=== PATIENT | female | born 1935 | race Caucasian/White ===

== ENCOUNTER 2018-02-11 16:45 | Inpatient (IN) | payer MEDICARE, OTHER ==
[~2018-02-11] VITALS: Ht 152.4 cm; Wt 58.6 kg
--- OUTSIDE RECORDS SUMMARY | ~2018-02-11 | XMS | Clinical Summary ---
Demographics + + + | Address | [address] | | | [place] [address] | + + + | Home Phone | | + + + | Preferred Language | Unknown | + + + | Marital Status | | + + + | Restorationist Affiliation | Unknown | + + + | Race | Unknown | + + + | Ethnic Group | Unknown | + + + Author + + + | Author | [facility] | + + + | Organization | [facility] | + + + | Address | Unknown | + + + | Phone | Unavailable | + + + Support + + + + + | Name | Relationship | Address | Phone | + + + + + | Farnaz Valdez | ECON | Unknown | | + + + + + | Obdulio Aviles | ECON | [address] | | | | | [place] | | | | | [address] | | + + + + + | Tristen Aviles | ECON | Unknown | | + + + + + Care Team Providers + +------+ + | Care Director Of Pediatric Rehabilitation Name | Role | Phone | + +------+ + | Kev Rodriguez MD | PP | | + +------+ + Allergies + + + + + + | Active Allergy | Reactions | Severity | Noted | Comments | | | | | Date | | + + + + + + | Penicillins | Rash | Medium | 12/23/19 | | | | | | 14 | | + + + + + + Current Medications + + + +---------+------+------+-------+ | Prescription | Sig. | Disp. | Refills | Star | End | Statu | | | | | | t | Date | s | | | | | | Date | | | + + + +---------+------+------+-------+ | Cholecalciferol | Take 1 tablet by | | | | | Activ | | (VITAMIN D PO) | mouth nightly. | | | | | e | + + + +---------+------+------+-------+ | FIBER PO | Take by mouth. | | | | | Activ | | | | | | | | e | + + + +---------+------+------+-------+ | fexofenadine | Take 180 mg by mouth | | | | | Activ | | (AMY) 180 MG | daily as needed. | | | | | e | | tablet | | | | | | | + + + +---------+------+------+-------+ | Calcium-Phosphorus | Take 1 tablet by | | | | | Activ | | (POSTURE) 600-280 | mouth daily with | | | | | e | | MG TABS | breakfast. | | | | | | + + + +---------+------+------+-------+ | acetaminophen | Take 650 mg by mouth | | | | | Activ | | (TYLENOL) 325 MG | every 6 (six) hours | | | | | e | | tablet | as needed. | | | | | | + + + +---------+------+------+-------+ | docusate sodium | Take 100 mg by mouth | | | | | Activ | | (COLACE) 100 MG | daily. | | | | | e | | capsule | | | | | | | + + + +---------+------+------+-------+ | | Take 3 mLs by | 360 mL | 0 | 08/2 | | Activ | | ipratropium-albutero | nebulization every 6 | | | 8/20 | | e | | l (DUO-NEB) 0.5-2.5 | (six) hours as | | | 14 | | | | mg/3mL | needed (shortness of | | | | | | | | breath and | | | | | | | | wheezing). | | | | | | + + + +---------+------+------+-------+ | oxybutynin | Take 5 mg by mouth 2 | | | | | Activ | | (DITROPAN) 5 MG | (two) times daily. | | | | | e | | tablet | | | | | | | + + + +---------+------+------+-------+ | cephALEXin | | | | 03/2 | | Activ | | (KEFLEX) 250 MG | | | | 5/20 | | e | | capsule | | | | 15 | | | + + + +---------+------+------+-------+ Active Problems + + + | Problem | Noted Date | + + + | Leukocytosis, unspecified | 02/28/2014 | + + + | Hyposmolality and/or hyponatremia | 02/28/2014 | + + + | Infection of TEAM MEMBER (ventriculoperitoneal) shunt | 02/27/2014 | + + + | Pneumonia | 02/26/2014 | + + + | Pleural effusion | 02/26/2014 | + + + | Normal pressure hydrocephalus | 02/25/2014 | + + + | Delayed wound healing | 02/21/2014 | + + + | NPH (normal pressure hydrocephalus) | 08/10/2012 | + + + Family History + + +------+ + | Medical History | Relation | Name | Comments | + + +------+ + | Stroke | | | | + + +------+ + + +------+--------+ + | Relation | Name | Status | Comments | + +------+--------+ + Social History + +-------+ +--------+------+ | Tobacco Use | Types | Packs/Day | Years | Date | | | | | Used | | + +-------+ +--------+------+ | Never Smoker | | | | | + +-------+ +--------+------+ + +---+---+---+ | Smokeless Tobacco: | | | | | Never Used | | | | + +---+---+---+ + + +---------+ + | Alcohol Use | Drinks/We | oz/Week | Comments | | | ek | | | + + +---------+ + | No | | | | + + +---------+ + + + + | Sex Assigned at | Date Recorded | | | | + + + | Not on file | | + + + Last Filed Vital Signs + + + + | Vital Sign | Reading | Time Taken | + + + + | Blood Pressure | 114/68 | 10/12/2014 10:37 AM PDT | + + + + | Pulse | 76 | 10/12/2014 10:37 AM PDT | + + + + | Temperature | 36.6 C (97.8 F) | 04/06/2014 10:54 AM PDT | + + + + | Respiratory Rate | 16 | 10/12/2014 10:37 AM PDT | + + + + | Oxygen Saturation | 95% | 10/12/2014 10:37 AM PDT | + + + + | Inhaled Oxygen | - | - | | Concentration | | | + + + + | Weight | 68.9 kg (152 lb) | 10/12/2014 10:37 AM PDT | + + + + | Height | 162.6 cm (5' 4") | 02/26/2014 6:13 PM PDT | + + + + | Body Mass Index | 26.09 | 10/12/2014 10:37 AM PDT | + + + + Plan of Treatment + + + + + | Health Maintenance | Due Date | Last Done | Comments | + + + + + | Vaccine: | | | | | Dtap/Tdap/Td (1 - | 6 | | | | Tdap) | | | | + + + + + | DEXA SCAN SCREENING | | | | | | 2 | | | + + + + + | Vaccine: | | | | | Pneumococcal 65+ | 2 | | | | Low/Medium Risk (1 | | | | | of 2 - PCV13) | | | | + + + + + | Vaccine: Influenza | | | | | (#1) | 8 | | | + + + + + Implants + +------+--------+ +--------+--------+--------+ | Implanted | Type | Area | Manufacture | Device | Expira | Model | | | | | r | | tion | / | | | | | | Identi | Date | Serial | | | | | | fier | | / Lot | + +------+--------+ +--------+--------+--------+ | Shunt Certas Valve [id number] - | | | | | 05/06/ | [id number] | | [id number]: Qty: 1 on | | | | | 2017 | 4 | | 08/25/2012 by Saad Levine, | | | | | | /[id number] | | MD | | | | | | 4 | | | | | | | | /[id number] | | | | | | | | H | + +------+--------+ +--------+--------+--------+ | Catheter Shunt Ventric 23cm | | | [employer] | | 09/03/ | 37355 | | Std [id number] - | | | | | 2015 | / | | [id number]: Qty: 1 on | | | | | | /[id number] | | 12/30/2013 by Saad Levine, | | | | | | 4 | | MD | | | | | | | + +------+--------+ +--------+--------+--------+ | Catheter Peritoneal Standard | | | [employer] | | 11/03/ | [id number] | | Open Ended With Wall Slits | | | | | 2014 | / | | Barium Impregnated Measures | | | | | | /[id number] | | 120cm - [id number]: | | | | | | 1 | | Qty: 1 on 12/30/2013 by | | | | | | | | Saad Levine MD | | | | | | | + +------+--------+ +--------+--------+--------+ | Valve Shunt Strata Adj | | | [employer] | | 03/06/ | [id number] | | Control Valve Sm [id number] - | | | | | 2014 | / | | [id number]: Qty: 1 on | | | | | | /[id number] | | 12/30/2013 by Saad Levine, | | | | | | 7 | | | | | | | | | + +------+--------+ +--------+--------+--------+ | Duragen 3x3 [id number] - | | Right: | [employer]TEG[employer] | | 02/26/ | [id number] | | [id number]: Qty: 1 on | | | | | 2015 | / | | 02/26/2014 by Vijaya, | | Crania | | | | /[id number] | | MD Ro | | l | | | | 77 | + +------+--------+ +--------+--------+--------+ + +------+------+ +--------+--------+--------+ | Explanted | Type | Area | Manufacture | Device | Expira | Model | | | | | r | | tion | / | | | | | | Identi | Date | Serial | | | | | | fier | | / Lot | + +------+------+ +--------+--------+--------+ | Connector Shunt Straight | | | | | 07/06/ | [id number] | | 82-3048 - [id number]: | | | | | 2016 | 8 | | Qty: 1 on 08/25/2012 | | | | | | /[id number] | | | | | | | | 8 | | | | | | | | /[id number] | | | | | | | | H | + +------+------+ +--------+--------+--------+ Results Not on filefrom Last 3 Months Insurance + +--------+ +------+-------+ + | Payer | Benefi | Subscriber | Type | Phone | Address | | | t Plan | ID | | | | | | / | | | | | | | Group | | | | | + +--------+ +------+-------+ + | MEDICARE | MEDICA | [id number] | | | [address] | | | RE | | | | [place] [address] | | | IP-OP | | | | | + +--------+ +------+-------+ + | [employer] [place] | MUTUAL | [id number] | | | | | | [place] | | | | | | | [place] | | | | | + +--------+ +------+-------+ + + +--------+ +--------+ + + | Guarantor Name | Accoun | Relation to | Date | Phone | Billing Address | | | t Type | Patient | of | | | | | | | | | | + +--------+ +--------+ + + | ARTIS AVILES | Person | Self [birth year] Home: | [address] | | | al/Fam | | 1936 | [phone] | [place] | | | [place] | | | [phone] | [phone] | + +--------+ +--------+ + +
--- OUTSIDE RECORDS SUMMARY | ~2018-02-11 | XMS | Clinical Summary ---
Demographics + + + | Address | [address] | | | [place] [address] | + + + | Home Phone | | + + + | Preferred Language | Unknown | + + + | Marital Status | | + + + | Scientologist Affiliation | NON | + + + | Race | White | + + + | Ethnic Group | Not or | + + + Author + + + | Author | [facility] | + + + | Organization | [facility] | + + + | Address | Unknown | + + + | Phone | Unavailable | + + + Support + + + + + | Name | Relationship | Address | Phone | + + + + + | RENAE DAIGLE | ECON | [address] | | | | | [place] | | | | | [address] | | + + + + + Care Team Providers + +------+ + | Care Climatology Teacher Name | Role | Phone | + +------+ + | Kev Rodriguez MD | PP | | + +------+ + Source Comments UGO is fully live on both [facility] Ambulatory and [facility] InPatient.[facility] [place] Allergies + + + + + + | Active Allergy | Reactions | Severity | Noted | Comments | | | | | Date | | + + + + + + | Penicillins | Rash | Medium | 01/31/20 | | | | | | 16 | | + + + + + + Current Medications + + +-------+---------+------+------+-------+ | Prescription | Sig. | Disp. | Refills | Star | End | Statu | | | | | | t | Date | s | | | | | | Date | | | + + +-------+---------+------+------+-------+ | TUMS OR | Take 200 mg by mouth | | | | | Activ | | | two times daily. | | | | | e | + + +-------+---------+------+------+-------+ | FIBERCON OR | Take 2 Tabs by mouth | | | | | Activ | | | two times daily. | | | | | e | + + +-------+---------+------+------+-------+ | ONE-A-DAY WOMENS | Take 1 Tab by mouth | | | | | Activ | | FORMULA OR | once daily. | | | | | e | + + +-------+---------+------+------+-------+ | DETROL LA 4 mg | Take 4 mg by mouth | | | | | Activ | | Oral Capsule, Sust. | once daily. | | | | | e | | Release 24 hr | | | | | | | + + +-------+---------+------+------+-------+ | TYLENOL PM OR | Take 2 Tabs by mouth | | | | | Activ | | | once daily at | | | | | e | | | bedtime. | | | | | | + + +-------+---------+------+------+-------+ | oxybutynin 5 mg | | | 12 | 07/2 | | Activ | | oral tablet | | | | 5/20 | | e | | | | | | 16 | | | + + +-------+---------+------+------+-------+ | CALCIUM CARBONATE | Take by mouth. | | | | | Activ | | (CALCIUM 600 ORAL) | | | | | | e | + + +-------+---------+------+------+-------+ | cholecalciferol, | Take by mouth. | | | | | Activ | | Vitamin D3, (VITAMIN | | | | | | e | | D3) 2,000 unit oral | | | | | | | | capsule | | | | | | | + + +-------+---------+------+------+-------+ | LACTOBACILLUS | Take by mouth. | | | | | Activ | | ACIDOPHILUS | | | | | | e | | (PROBIOTIC ORAL) | | | | | | | + + +-------+---------+------+------+-------+ Active Problems + + + | Problem | Noted Date | + + + | Hypo-osmolality and or hyponatremia | 02/28/2014 | + + + | Leukocytosis | 02/28/2014 | + + + | Infection of ventriculoperitoneal shunt (HCC) | 02/27/2014 | + + + | Pleural effusion | 02/26/2014 | + + + | Pneumonia | 02/26/2014 | + + + | Other injury of unspecified body region | 02/21/2014 | + + + | S/P OPERATIONS AND MAINTENANCE SPECIALIST shunt | 10/12/2008 | + + + | NPH (normal pressure hydrocephalus) | 10/12/2008 | + + + Immunizations + + + + | Name | Dates Previously Given | Next Due | + + + + | Flu trivalent | 04/26/2015 | | | injectable pfree | | | + + + + | Influenza, seasonal, | 04/21/2014 | | | intradermal pfree | | | + + + + Family History + + +------+ + | Medical History | Relation | Name | Comments | + + +------+ + | Diabetes | Father | | | + + +------+ + | Psychiatry | Mother | | | + + +------+ + + +------+ + + | Relation | Name | Status | Comments | + +------+ + + | Brother | | Alive | | + +------+ + + | Brother | | Alive | | + +------+ + + | Daughter | | Alive | | + +------+ + + | Daughter | | Alive | | + +------+ + + | Father | | | | + +------+ + + | Mother | | Alive | | + +------+ + + | Son | | Alive | | + +------+ + + Social History + +-------+ +--------+------+ | Tobacco Use | Types | Packs/Day | Years | Date | | | | | Used | | + +-------+ +--------+------+ | Never Smoker | | | | | + +-------+ +--------+------+ + + +---------+ + | Alcohol Use | Drinks/We | oz/Week | Comments | | | ek | | | + + +---------+ + | No | 0 | 0.0 | | | | Standard | | | | | drinks or | | | | | | | | | | equivalen | | | | | t | | | + + +---------+ + + + + | Sex Assigned at | Date Recorded | | | | + + + | Not on file | | + + + Last Filed Vital Signs + + + + | Vital Sign | Reading | Time Taken | + + + + | Blood Pressure | 122/71 | 01/31/2016 12:56 PM PDT | + + + + | Pulse | 62 | 01/31/2016 12:56 PM PDT | + + + + | Temperature | 36.6 C (97.8 F) | 01/31/2016 12:56 PM PDT | + + + + | Respiratory Rate | 12 | 10/12/2008 9:45 AM PDT | + + + + | Oxygen Saturation | 93% | 10/12/2008 9:45 AM PDT | + + + + | Inhaled Oxygen | - | - | | Concentration | | | + + + + | Weight | 65.8 kg (145 lb) | 01/31/2016 12:56 PM PDT | + + + + | Height | 160 cm (5' 3") | 01/31/2016 12:56 PM PDT | + + + + | Body Mass Index | 25.69 | 01/31/2016 12:56 PM PDT | + + + + Plan of Treatment + + + + + | Health Maintenance | Due Date | Last Done | Comments | + + + + + | INFLUENZA VACCINE | | 04/26/2015, 04/21/2014 | | | (FLU SHOT) | 8 | | | + + + + + Results Not on filefrom Last 3 Months Insurance + +--------+ +--------+ + + | Payer | Benefi | Subscriber | Type | Phone | Address | | | t Plan | ID | | | | | | / | | | | | | | Group | | | | | + +--------+ +--------+ + + | MEDICARE | MEDICA | xxxxxxxxxx | Medica | [id number] | [address] | | | RE A & | | re | [phone] | [place] [address] | | | B | | | | | + +--------+ +--------+ + + | [employer] [place] | MUTUAL | [phone] | Indemn | [phone] | [employer] [place] | | MEDICARE SUPPL | OF | | ity | [address] | | | [place] | | | | [phone] | | | MEDICA | | | | | | | RE | | | | | | | SUPPL | | | | | + +--------+ +--------+ + + + +--------+ +--------+ + + | Guarantor Name | Accoun | Relation to | Date | Phone | Billing Address | | | t Type | Patient | of | | | | | | | | | | + +--------+ +--------+ + + | ARTIS DAIGLE | Person | Self [birth year] | Home: | [address] | | | al/Fam | | 1936 | [phone] | [place] | | | [place] | | | [phone] | + +--------+ +--------+ + +
--- OUTSIDE RECORDS SUMMARY | ~2018-02-11 | XMS | Clinical Summary ---
Demographics + + + | Address | [address] | | | [place] [address] | + + + | Home Phone | | + + + | Preferred Language | Unknown | + + + | Marital Status | | + + + | Restoration Affiliation | Unknown | + + + | Race | Unknown | + + + | Ethnic Group | Unknown | + + + Author + + + | Author | [facility] | + + + | Organization | [facility] | + + + | Address [...] [place] | | | | | [address] | | + + + + + | Tristen Aviles | ECON | Unknown | | + + + + + Care Team Providers + +------+ + | Care Dental Equipment Mechanic Name | Role | Phone | + [...] | + + + | Infection of RN BUILDING (ventriculoperitoneal) shunt | 02/27/2014 | + + [...] | | 05/06/ | 82880 | | [id number]: Qty: 1 on | | | | | 2017 | 4 | | 08/25/2012 by Saad Levine, | | | | | | /[id number] | | MD | | | | | | 4 | | | | | | | | /[id number] | | | | | | | | H | + +------+--------+ +--------+--------+--------+ | Catheter Shunt Ventric 23cm | | | [employer] | | 09/03/ | 71390 | | Std 10736 - | | | | | 2015 | / | | [id number]: Qty: 1 on | | | | | | /[id number] | | 12/30/2013 by Saad Levine, | | | | | | 4 | | MD | | | | | | | + +------+--------+ +--------+--------+--------+ | Catheter Peritoneal Standard | | | [employer] | | 11/03/ | [id number] | | Open Ended With Wall Slits | | | | | 2014 | / | | Barium Impregnated Measures | | | | | | /[id number] | | 120cm - [id number]: | | | | | | 1 | | Qty: 1 on 12/30/2013 by | | | | | | | | Saad Levine MD | | | | | | | + +------+--------+ +--------+--------+--------+ | Valve Shunt Strata Adj | | | [employer] | | 03/06/ | 38211 | | Control Valve Sm [id number] - | | | | | 2014 | / | | [id number]: Qty: 1 on | | | | | | /[id number] | | 12/30/2013 by Saad Levine, | | | | | | 7 | | | | | | | | | + +------+--------+ +--------+--------+--------+ | Duragen 3x3 [id number] - | | Right: | [employer] | | 02/26/ | [id number] | | [id number]: Qty: 1 on | | | | | 2015 | / | | 02/26/2014 by Vijaya, | | Crania | | | | /[id number] | | MD Ro | | l [...] 07/06/ | 82-304 | | 82-3048 - [id number]: | | | | | 2016 | 8 | | Qty: 1 on 08/25/2012 | | | | | | /[id number] | | | | | | | [...] +------+-------+ + | MEDICARE | MEDICA | [id number] | | | [address] | | | RE | | | | [place] [address] | | | IP-OP | | | | | + +--------+ +------+-------+ + | [employer] [place] | MUTUAL | [id number] | | | | | | [place] | | | | | | | [place] | | | | | + +--------+ [...] | [birth year] | Home: | [address] | | | al/Fam | | 1936 | [phone] | [place] | | | [place] | | | [phone] | [phone] | + +--------+ +--------+ + +
--- OUTSIDE RECORDS SUMMARY | ~2018-02-11 | XMS | Clinical Summary ---
Demographics + + + | Address | [address] | | | [place] [address] | + + + | Home Phone | | + + + | Preferred Language | Unknown | + + + | Marital Status | | + + + | Orthodox Affiliation | Unknown | + + + | Race | Unknown | + + + | Ethnic Group | Unknown | + + + Author + + + | Author | [facility] | + + + | Organization | [facility] | + + + | Address | Unknown | + + + | Phone | Unavailable | + + + Support + + + + + | Name | Relationship | Address | Phone | + + + + + | Farnaz Valdez | ECON | Unknown | | + + + + + | Obdulio Aviles | ECON | [address] | | | | | [place] | | | | | [address] | | + + + + + | Tristen Aviles | ECON | Unknown | | + + + + + Care Team Providers + +------+ + | Care Lei Seller Name | Role | Phone | + [...] | + + + | Infection of RADIO ELECTRONICS TECHNICIAN (ventriculoperitoneal) shunt | 02/27/2014 | + + [...] | | 05/06/ | [address] | | [id number]: Qty: 1 on | | | | | 2017 | 4 | | 08/25/2012 by Saad Levine, | | | | | | /[id number] | | MD | | | | | | 4 | | | | | | | | /CNNCW | | | | | | | | H | + +------+--------+ +--------+--------+--------+ | Catheter Shunt Ventric 23cm | | | [employer] | | 09/03/ | 05264 | | Std 88466 - | | | | | 2015 | / | | [id number]: Qty: 1 on | | | | | | /[id number] | | 12/30/2013 by Saad Levine, | | | | | | 4 | | MD | | | | | | | + +------+--------+ +--------+--------+--------+ | Catheter Peritoneal Standard | | | [employer] | | 11/03/ | [id number] | | Open Ended With Wall Slits | | | | | 2014 | / | | Barium Impregnated Measures | | | | | | /[id number] | | 120cm - [id number]: | | | | | | 1 | | Qty: 1 on 12/30/2013 by | | | | | | | | Saad Levine MD | | | | | | | + +------+--------+ +--------+--------+--------+ | Valve Shunt Strata Adj | | | [employer] | | 03/06/ | 41263 | | [place] Valve Sm [id number] - | | | | | 2014 | / | | [id number]: Qty: 1 on | | | | | | /[id number] | | 12/30/2013 by Saad Levine, | | | | | | 7 | | | | | | | | | + +------+--------+ +--------+--------+--------+ | Duragen 3x3 [id number] - | | Right: | [employer]GRA | | 02/26/ | [id number] | | [id number]: Qty: 1 on | | | | | 2015 | / | | 02/26/2014 by Vijaya, | | Crania | | | | /[id number] | | MD Ro | | l [...] 07/06/ | 82-304 | | 82-3048 - [id number]: | | | | | 2016 | 8 | | Qty: 1 on 08/25/2012 | | | | | | /[id number] | | | | | | | [...] +------+-------+ + | MEDICARE | MEDICA | [id number] | | | [address] | | | RE | | | | [place] [address] | | | IP-OP | | | | | + +--------+ +------+-------+ + | [employer] [place] | MUTUAL | [id number] | | | | | | [place] | | | | | | | [place] | | | | | + +--------+ [...] | [birth year] | Home: | [address] | | | al/Fam | | 1936 | [phone] | [place] | | | [place] | | | [phone] | [phone] | + +--------+ +--------+ + +
--- OUTSIDE RECORDS SUMMARY | ~2018-02-11 | XMS | Clinical Summary ---
Demographics + + + | Address | [address] | | | [place] [address] | + + + | Home Phone | | + + + | Preferred Language | Unknown | + + + | Marital Status | | + + + | Sikhism Affiliation | NON | + + + [...] RENAE DAIGLE | ECON | [address] | | | | | [place] | | | | | [address] | | + + + + + Care Team Providers + +------+ + | Care Laborer Landscape Name | Role | Phone | + +------+ + | Kev Rodriguez MD | PP | | + +------+ + Source Comments UGO is fully live on both [facility] Ambulatory and [facility] InPatient.[facility] Allergies + + + + + + [...] 02/21/2014 | + + + | S/P ASSISTANT HAIRSTYLIST shunt | 10/12/2008 | + + + [...] | MEDICA | xxxxxxxxxx | Medica | [id number] | [address] | | | RE A & | | re | [phone] | [place] [address] | | | B | | | | | + +--------+ +--------+ + + | [employer] [place] | MUTUAL | [phone] | Indemn | [phone] | [employer] [place] | | MEDICARE SUPPL | OF | | ity | [address] | [address] | | | [place] | | | | [phone] | | | [employer]ICA | | | [...] | | | neelam | | | [phone] | [phone] | + +--------+ +--------+ + +
--- OUTSIDE RECORDS SUMMARY | ~2018-02-11 | XMS | Clinical Summary ---
Demographics + + + | Address | [address] | | | [place] [address] | + + + | Home Phone | | + + + | Preferred Language | Unknown | + + + | Marital Status | | + + + | Catholic Affiliation | NON | + + + [...] RENAE DAIGLE | ECON | [address] | | | | | [place] | | | | | [phone] | | + + + + + Care Team Providers + +------+ + | Care Screw Machine Tool Setter Name | Role | Phone | + +------+ + | Kev Rodriguez MD | PP | | + +------+ + Source Comments [facility] is fully live on both [facility] Ambulatory and [facility] InPatient.[facility] Allergies + + + + + + [...] 02/21/2014 | + + + | S/P KITCHEN MANAGER shunt | 10/12/2008 | + + + [...] | MEDICA | xxxxxxxxxx | Medica | [phone] | [address] | | | RE A & | | re | [phone] | [place] [address] | | | B | | | | | + +--------+ +--------+ + + | [employer] [place] | MUTUAL | [phone] | Indemn | [phone] | [employer] [place] | | MEDICARE SUPPL | OF | | ity | [address] | [address] | | | [place] | | | | [phone] | | | [employer]ICA | | | [...] | | | neelam | | | [phone] | [phone] | + +--------+ +--------+ + +
[2018-02-11] MEDS ORDERED: CALCIUM 600 WI1 EAC2 PO (16:56)
[2018-02-11] MEDS ORDERED: OXYBUTYNIN CHLOR5 MG PO (16:57)
[2018-02-11] MEDS ORDERED: SERTRALINE HCL50 MG PO (16:57)
[2018-02-11] MEDS ORDERED: IBUPROFEN600 MG PO (16:57)
--- NOTE | 2018-02-11 20:00 | NUR ---
HANDOFF REPORT RECEIVED FROM ED RN MELANIA. ASSUMED CARE OF PT.
--- NOTE | 2018-02-11 20:24 | NUR ---
CHARGE NURSE ROUNDING NOTE:. PT ARRIVED TO ROOM 111 AT 2017 FROM ED VIA STRETCHER, FAMILY AT BEDSIDE
--- NOTE | 2018-02-11 20:35 | NUR ---
VITALS AND BED WEIGHT DONE AND CHARTED.
--- NOTE | 2018-02-11 21:00 | NUR ---
PT ASSESSMENT COMPLETE. PT ORIENTED TO SELF. FAMILY IN ROOM AT THIS TIME. PT COOPERATIVE. ICE PACK IN PLACE ON LEFT HIP. PRN DILAUDID ADMINISTERED, PT DOES NOT RATE PAIN, GRIMACING WITH TRANSFER FROM STRETCHER TO HOSPITAL BED. CSM INTACT BUE, BLE. SENSATION AND MOVEMENT INTACT BLE. IVF INFUSING WNL. BED ALARM ON FOR PT SAFETY.
--- NOTE | 2018-02-11 21:25 | NUR ---
BUCKS TRACTION APPLIED ORDERED, AMANDO HOSE IN PLACE. PT TOLERATED WELL. WARM BLANKET PROVIDED. PT DENIES PAIN. LIGHTS OFF IN ROOM. BED ALARM ON.
--- NOTE | 2018-02-11 21:45 | NUR ---
IN PT ROOM TO REASSESS TRACTION, PT DENIES PAIN. PEDAL AND POPLITEAL PULSES STRONG LLE, SENSATION INTACT, CAP REFILL <3, WARM TO TOUCH. PT DENIES PAIN. LIGHTS OFF IN ROOM. BED ALARM ON.
--- NOTE | 2018-02-12 00:20 | NUR ---
IN PT ROOM TO REPOSITION PT W ELEMENTARY SECRETARY MAYELA AND SAIDA HERNANDEZ. PT CLENCHING FISTS, OCCASIONAL GRIMACE, PRN DILAUDID ADMINISTERED AT THIS TIME. ATTEMPTS AT SECOND IV START UNSUCCESSFUL. PT TOLERATED WELL. PT RESTING. BED ALARM SET. AMANDO HOSE, HEEL PROTECTOR, BUCKS TRACTION IN PLACE. CSM INTACT BLE. CALL LIGHT IN REACH.
--- NOTE | 2018-02-12 01:27 | NUR ---
VITALS AND I&OS DONE AND CHARTED. PT NEEDS NOTHING AT THIS TIME. CALL LIGHT WITHIN REACH.
--- NOTE | 2018-02-12 02:27 | NUR ---
CHECKED ON PT, APPEARS TO BE SLEEPING, EYES CLOSED, BREATHING NON-LABORED, VISIBLE CHEST RISE EQUAL BILATERALLY. BED ALARM ON.
--- NOTE | 2018-02-12 04:57 | NUR ---
PT SLEEPING, AWAKENS TO VOICE. VITALS AND ASSESSMENT COMPLETE. CSM INTACT BUE, BLE. TRACTION IN PLACE. PT DENIES PAIN. AMANDO HOSE AND HEEL PROTECTOR ON. BED ALARM SET. PT HAS NO REQUESTS AT THIS TIME.
--- NOTE | 2018-02-12 06:21 | NUR ---
EMPTIED BAILEY AND CHARTED IT. PT APPEARS TO BE SLEEPING. CALL LIGHT IN HER HAND.
--- NOTE | 2018-02-12 06:41 | NUR ---
PRN DILAUDID FOR PAIN CONTROL. AMANDO HOSE, HEEL PROTECTOR, AND BUCKS TRACTION W 5LB WEIGHT IN PLACE THROUGHOUT SHIFT. PT ORIENTED ONLY TO SELF. BED ALARM IN PLACE, PT NOT IMPULSIVE, SLEEPING FOR MOST OF SHIFT. IVF INFUSING WNL. BAILEY CATHETER DRAINING QS OUTPUT. NPO. SURGERY PLANNED FOR THIS AFTERNOON. SKIN GROSSLY INTACT.
--- NOTE | 2018-02-12 07:38 | NUR ---
REPORT RC'D FROM STAFFING RN NURSE. REPORTS PT SLEPT MOST OF NIGHT, TRACTION IN PLACE, PT TO HAVE SURGERY THIS AFTERNOON. PT IN BED SLEEPING AT THIS TIME.
--- NOTE | 2018-02-12 08:00 | NUR ---
PT LAYING IN BED SLEEPING, NO ACUTE DISTRESS NOTED. DR. BARAJAS IN ROOM THIS MORNING TO ASSESS PT AND UPDATE PLAN OF CARE, PT TO HAVE SURGERY LATER THIS AFTERNOON. PT IS DROWST BUT AWAKENS EASILY, DISORENTED TO ALL, UNABLE TO FOLLOW COMMANDS. RESPIRATIONS EVEN AND UNLABORED, LUNG SOUNDS CLEAR THROUGHOUT, NO COUGH. HEART SOUNDS REGULAR. ABD NON TENDER, BOWEL TONES HYPOACTIVE THROUGHOUT, UNABLE TO ASSESS FOR NAUSEA, PT NPO FOR SURGERY. BAILEY CATH IN PLACE DRAINING YELLOW URINE. LEFT LEG TRACTION IN PLACE, ICE FOR COMFORT, CAP REFILL LESS THAN 3 SECONDS, SKIN WARM AND PINK, AMANDO HOSE IN PLACE. SIDE RAILS UP, BED ALARM ON, CURTAINS DRAWN FOR CLEAR LINE OF SIGHT. WILL CONTINUE TO MONITOR.
--- NOTE | 2018-02-12 10:42 | NUR ---
PT REMAINS DROWSY BUT ROUSABLE, DISORIENTED TO ALL. NO ACUTE CHANGES. TRACTION REPOSITIONED AT THIS TIME, TOLERATED WELL. REASSESSED FOR PAIN AND POSITIONING. PT NOTED TO HAVE GRIMACE, TENSE, AND OCCASSIONAL CRY, 0.25 MG DILAUDID GIVEN. CONSENT FOR SURGERY DISCUSSED WITH PT'S , ALL QUESTIONS ANSWERED AT THIS TIME, SIGNED FORM PLACED IN CHART. DENIES OTHER NEEDS AT THIS TIME. BED ALARM ON, RAILS UP, AND CURTAINS DRAWN FOR CLEAR LINE OF SIGHT.
--- NOTE | 2018-02-12 11:54 | NUR ---
NO ACUTE CHANGES. PT REMAINS DROWSY BUT EASILY AWAKENS, DISORIENTED TO ALL. FAMILY AT BEDSIDE. PT RESTING COMFORTABLY IN BED, NO GRIMACE, CRY, OR TENSE MOVEMENTS NOTED AFTER 0.25MG DILAUDID GIVEN. TRACTION IN PLACE, COLD THERAPY REMOVED WNL AT THIS TIME, WILL REAPPLY WITHIN 1-2 HOURS. WILL CONTINUE TO MONITOR FOR PAIN AND TRACTION PLACEMENT.
--- NOTE | 2018-02-12 12:23 | NUR ---
PT ASSESSED FOR BM, CORA CARE COMPLETED, CATH CARE COMPLETED. PT REASSESSED FOR PAIN AND POSITIONING. TRACTION IN PLACE AT THIS TIME. BED ALARM ON AND CURTAINS DRAWN FOR CLEAR LINE OF SIGHT.
--- NOTE | 2018-02-12 15:39 | NUR ---
PT OFF UNIT AT THIS TIME AND DOWN TO SURGERY AREA.
--- NOTE | 2018-02-12 17:07 | NUR ---
02/12/18 1707 Brunilda Holder 1650 PATIENT ARRIVES TO PACU SLEEPING, AWAKENS WITH VERBAL STIMULI, BUT IS CONFUSED AND DOES NOT FOLLOW COMMANDS, WHICH IS PATIENT'S BASELINE SHE HAS DEMENTIA. RESP EVEN AND UNLABORED, SATS 84%-94% ON ROOM AIR. OXYGEN VIA NC APPLIED, WHICH PATIENT DOES NOT TOLERATE WELL AND IS TAKING OFF. PATIENT HAS HIP BOLSTER IN PLACE ON ARRIAL FROM OR. PATIENT ALSO HAS BILAT LE SCDS WHICH DR KARL POOLEAYS IN PLACE OF FOOT SCDS.
--- NOTE | 2018-02-12 17:30 | NUR ---
PT ARRIVED FROM PACU VIA STRETCHER. PT A&O TO SELF ONLY, VERBALIZING "WHAT'S THAT," REORIENTATION PROVIDED. VITAL SIGNS OBTAINED, BP 113/53, MAP 67, PULSE 68, TEMP 98.1 TEMPANIC, 90% ON ROOM AIR. RESPIRATIONS EVEN AND UNLABORED, NO ACUTE DISTRESS NOTED. BAILEY CATH IN PLACE DRAINING YELLOW URINE. ABDUCTION PILLOW, AMANDO HOSE, AND SCD'S IN PLACE. LEFT HIP SURGICAL SITE COVERED WITH MEPILEX AND OPSITE, C/D/I. ICE TO SURGICAL SITE. UNABLE TO COMMUNICATE PAIN, NO GRIMACE, CRYING/MOAN, OR TENSE MOVEMENTS, PT APPEARS COMFORTABLE. WILL CONTINUE TO MONITOR. FAMILY AT BEDSIDE. OFFERED PT WATER, UNABLE TO SWALLOW AT THIS TIME, PROVIDER AWARE, SPEECH THERAPY TO EVALUATE, PO MED HELD AT THIS TIME. DENIES OTHER NEEDS. BED IN LOWEST POSITION, BED ALRAM ON, AND CURTAIN DRAWN FOR CLEAR LINE OF SIGHT.
--- NOTE | 2018-02-12 18:11 | NUR ---
DR. VALENTINE AT BEDSIDE TO ASSESS PT AND UPDATE PLAN OF CARE. FAMILY AT BEDSIDE, ASKING QUESTIONS, VERBALIZED UNDERSTANDING OF PLAN OF CARE.
--- NOTE | 2018-02-12 18:44 | NUR ---
PT REMAINS DISORIENTED TO ALL, FREQUENT REORIENTATION NEEDED, BED ALARM AND CLEAR LINE OF SIGHT. PT'S PAIN WELL CONTROLLED. PT DROWSY AT START OF SHIFT BUT MORE ALERT THIS EVENING. PT RETURNED FROM PACU AROUND 1730. AMANDO HOSE, ABDUCTOR PILLOW, AND SCD'S IN PLACE. BAILEY CATH WNL AND DRAINING YELLOW URINE.
--- NOTE | 2018-02-12 19:05 | NUR ---
SHIFT REPORT RECEIVED. PATIENT RESTING IN BED. APPEARS TO BE IN GOOD SPIRITS. NONVERBAL AT THIS TIME BUT SMILING AT STAFF. IF FLUIDS INFUSING PER ORDER. SITE WNL. BED ALARM ON. ICE PACK ON RIGHT HIP. BAILEY DRAINING CLEAR YELLOW URINE. SCDS IN PLACE, AMANDO HOSE ON. DRESSING ON RIGHT HIP C/D/I.
--- NOTE | 2018-02-12 19:07 | NUR ---
THE NURSE AND I DID A SURGICAL WIPE DOWN AROUND 1400.
--- NOTE | 2018-02-12 19:49 | NUR ---
CONTACTED [facility] "KRYSTIN" A STAFF MEMBER, REGARDING PT "NORMAL" CARE NEEDS. PT PRIOR TO FALL, WAS INDEPENDENT IN AMBULATION, ABLE TO SELF TOILET BUT NEEDED HELP WITH CLEANING SELF AFTERWARDS. PT WAS DEPENDENT ON ALL ASPECTS OF DRESSING AND UNDRESSING. ABLE TO FEED SELF, TENDED TO "MIX" ALL HER FOODS TOGETHER, USED UTENCILS. STATED THAT PT WAS LEFT ALONE TO EAT SHE DIDN'T LIKE OTHERS TO WATCH OR BOTHER HER WHILE SHE ATE. COULD GET "FEISTY" WOULD CUSS IF SHE FELT UNCOMFORTABLE. STAFF DENIED THAT PT HAD BEHAVIORS R/T STRIKING OUT. PT DOES GRIND HER TEETH, AND THIS IS A NORMAL BEHAVIOR.
--- NOTE | 2018-02-12 19:58 | NUR ---
PATIENT HAS BEEN PULLING AT IV SITE, BAILEY, AND COVERS. CHARGE NURSE WITH PATIENT. SHE APPEARS CALM BUT FIGETING. IV SITE COVERED WITH KAY WRAP. DYE MAKERSAIDA ARRIETA ASSISTED THE PATIENT TO DRINK 150ML OF NECTAR THICK LIQUID WHICH SHE TOLERATED WELL.
--- NOTE | 2018-02-12 20:09 | NUR ---
SPOKE WITH IRISH HUNG ABOUT POST EPIDURAL ORDERS. SHE REPORTS THE PATIENT IS ABLE TO RECEIVE THE POST OP DILAUDID BECAUSE SHE DID NOT RECEIVED NARCOTICS IN HER EPIDURAL. VERIFIED BY REPEATING THESE ORDERS BACK.
--- NOTE | 2018-02-12 20:30 | NUR ---
PATIENT APPEARS MUCH CALMER AND MORE RELAXED AFTER PRN DILAUDID PROVIDED. PATIENT CONTINUES TO BE NONVERBAL. SAYS SOME WORDS "HELP" "WHAT" "HI", BUT HAS NOT MADE ANY APPROPRIATE RESPONCES. WOOD MODEL MAKER STRENGTH IS EQUAL. LUNGS APPEAR CLEAR BUT NOT TAKING DEEP BREATHS, DIMINISHED IN THE BASES. ABD SOFT, NONTENDER. BOWEL SOUNDS HYPOACTIVE. PATIENT TOLERATING SIPS OF NECTAR THICK LIQUIDS WITH NO SIGNS OF ASPIRATION. HOB ELEVATED WHILE DRINKING. HIP ABDUCTOR IN PLACE, HEEL PROTECTORS, AMANDO HOSE, AND SCDS. BAILEY DRAINING QS CLEAR YELLOW URINE. BAILEY CARE DONE. IV FLUIDS PER ORDER, SITE WNL.
--- NOTE | 2018-02-12 22:10 | NUR ---
Patient recieved her antibiotics and IV also flushed well. Patient had no complaints of pain and just sat and held my hand for awhile calmly and then seemed to drift off to sleep, eyes closed, and respirations even. Call light in reach and patient can be seen from the nurses desk.
--- NOTE | 2018-02-13 00:51 | NUR ---
PATIENT CONTINUES TO REST QUIETLY WITH EYE CLOSED AND RESPIRATIONS REGULAR AND EVEN. O2 SAT 94% ON ROOM AIR AND HER HEART RATE PER MONITOR IS 56BPM. CALL LIGHT IS IN REACH.
--- NOTE | 2018-02-13 01:30 | NUR ---
REPOSITIONED PATIENT FOR COMFORT. BAILEY EMPTIED, OUTPUT QS. IV FLUIDS INFUSING, SITE WNL. UNWRAPPED FOR ASSESSMENT AND KAY WRAP REPLACED TO KEEP PATIENT FROM PULLING AT TUBING. PATIENT WOKE BRIEFLY WHEN MOVED BUT SMILED AND CLOSED HER EYES. TOLERATING ROOM AIR, O2 SAT 96%. HEEL PROTECTORS, SCDS, AMANDO HOSE, AND HIP ABDUCTOR IN USE.
--- NOTE | 2018-02-13 05:03 | NUR ---
PATIENT SLEPT WELL THIS AFTER AFTER RECEIVING ONE LOW OF IV DILAUDID. DISORIENTED TO ALL, NONVERBAL. PATIENT MAKES EYE CONTACT AND SMILES WHILE AWAKE. TOLERATED ROOM AIR, CONTINUOUS PULSE OX THROUGHOUT THE NIGHT. IV FLUIDS PER ORDER SITE WNL. TOLERATED NECTAR THICK LIQUIDS, ST TO EVALUATE. BAILEY IN PLACE TO BE DC THIS AM. OUTPUT QS. DRESSING ON RIGHT HIP C/D/I. ICE TO AREA PRN. HIP ABDUCTOR, HEEL PROTECTORS, SCDS, & AMANDO HOSE.
--- NOTE | 2018-02-13 06:08 | NUR ---
PATIENT AWAKE THIS MORNING. REPLIES "YES" WHEN RN SAYS HER NAME BUT NO OTHER REPLIED. PATIENT IS RESTLESS IN THE BED. ATTEMPTS TO GIVE HER PO NORCO WERE SUCCESSFUL. PATIENT WOULD NOT TAKE PILL WHOLE OR CRUSHED IN APPLE SAUCE. ICE PACKS APPLIED TO RIGHT HIP. LEO BRIDGES ATTENDS IN PLACE. IV ABX GIVEN PER ORDER.
--- NOTE | 2018-02-13 07:30 | NUR ---
HAND OFF REPORT TAKEN. PT REQUESTS ASSISTANCE TO USE THE BATHROOM "I HAVE TO PEE." PT ASSISTED UP TO COMODE. FULL ASSIST NEEDED. PT UNABLE TO VOID. SLING USED. PT ASSISTED UP TO CHAIR. CALL LIGHT WITHIN REACH.
--- NOTE | 2018-02-13 07:39 | NUR ---
HOSPITALIST AWARE OF LOW URINE OUTPUT THIS AM. NO NEW ORDERS.
--- NOTE | 2018-02-13 09:03 | NUR ---
MORNIGN ASSESSMENT AND MEDICATIONS DUE. THIS RN TO BEDSIDE. PT REMAINS UP TO CHAIR. PT ATTEMPTING TO EAT JELLO...GENERALLY UNSUCESSFUL. PT ASSITED WITH EATING APPLESAUCE (WITH MORNING MEDICATIONS, SEE MAR). ASSESSMENT DONE. CMS INTACT. ABDUCTOR PAD IN PLACE. CALL LIGHT WITHIN REACH. DOOR OPEN FOR EASY VIEW FROM NURSES STATION.
--- NOTE | 2018-02-13 10:07 | NUR ---
THIS RN TO ROOM TO PLACE BAILEY CATHETER. 2 ATTEMPTS (1 BY TRANING RN, MITCHELL) TO PLACE CATHETER. 2ND ATTEMPT BY THIS RN SUCESSFUL. 125ML ABHILASH URINE OBTAINED WITH BAILEY PLACEMENT. PT APPEARS PAINFUL 4/10 ON FACES SCALE. DILAUDID GIVEN (SEE MAR). PT RESTING IN BED WITH EYES CLOSED, RR = 18BPM. TO BEDSIDE. ENCORUAGED TO HELP PT DRINK FLUIDS. BED RAILS UP. ABDUCTOR PAD, SCD, AND HEEL PROTECTORS IN PLACE. CALL LIGHT WITHIN REACH.
--- NOTE | 2018-02-13 10:23 | NUR ---
pt is resting in bed safely with call light in reach and in room. pt did not need anything at the moment
--- NOTE | 2018-02-13 10:40 | NUR ---
PAIN REASSESSMENT DUE. THIS RN TO BEDSIDE. PT RESTING IN BED WITH EYES CLOSED. PT RESPONDS TO GENTEL TOUCH, RR = 20 BPM, O2 = 93%. PT NOT FORMING SENTENCES AT THIS TIME. BED RAILS UP. CALL LIGHT WITHIN REACH. LEAVING BEDSIDE FOR THE DAY SO PT "CAN REST." PULSE OX DC'D PER MD VERBAL ORDER. FACES PAIN SCALE SHOWS 2-3/10 PAIN. PT DRIFTS BACK TO SLEEP, RR = 20.
--- NOTE | 2018-02-13 10:54 | NUR ---
REASSESSED PAIN. PATIENT OPENED EYES WHEN TOUCHED AND ASKED. LIMBS ARE TENSE AND SHE RESISTS MOVEMENT. PATIENT RESTING WITH AT BEDSIDE. NO COMPLAINTS OR REQUESTS AT THIS TIME.
--- NOTE | 2018-02-13 12:39 | NUR ---
PT CALLING FOR HELP. PT COMPLAINING OF FINGER NAILS "NEED HELP." FINGER NAILS ARE ALEADY CUT SHORT. FINGERS CLEANED WITH WET CLOTH. PT TRANSFERED TO CHAIR FOR LUNCH. PHYSICAL THERAPIST AT BEDSIDE. PHYSICAL THERPIST WORKING WITH PT. PT UNABLE TO STAND ON HER OWN. PT BACK TO CHAIR. ABDUCTOR PILLOW, SCDS AND AMANDO HOSE IN PLACE. FOCUSSED ASSESSMENT DONE. CMS INTACT. PT DENIES PAIN. FAMILY AT BEDSIDE. PT WILLING TO EAT PUDDING. FAMILY FEEDING PT PUDDING. DIET ORDER ADVANCED. CHAIR ALARM ON. CALL LIGTH WITHIN REACH.
--- NOTE | 2018-02-13 12:59 | NUR ---
THIS RN TO BEDSIDE WITH MD FOR ROUNDS. PT UP IN CHAIR VISITING WITH FAMILY. PT CONTINUES TO BE DISORIENTED TO SURROUNDINGS WELL ALL OTHER ORIENTATIONS. PT VERBAL AND TALKING. FAMILY STATES THEIR QUESTIONS HAVE BEEN ANSWERWED. PT REPOSITIONED. NO ADDITIONAL REQUESTS OR COMPLAINTS. AT THIS TIME. CHAIR ALARM ON. FAMILY AT BEDSIDE.
--- NOTE | 2018-02-13 13:44 | NUR ---
ABX DUE. THIS RN TO BEDSIDE. PT UP TO CHAIR LISENING TO MUSIC WITH FAMILY. ABX GIVEN ORDERED. PT CONTINUES VISITING WITH FAMILY. NO REQUESTS OR COMPLAINTS AT THIS TIME.
--- NOTE | 2018-02-13 14:04 | NUR ---
PT ATTEMPTING TO PULL BAILEY CATHETER OUT. GEOSPATIAL SPECIALIST AND THIS RN TO BEDSIDE. BAILEY SECURED AND LEGS WRAPPED OVER ABDUCTOR PILLOW WITH BLANKET. RED FOAM BALL PROVIDED FOR PT TO PLAY WITH IN HANDS. FAMILY BACK TO BEDSDIE. PT WORKING WITH GEOSPATIAL SPECIALIST FOR VITALS. CHAIR ALARM ON. CALL LIGHT WITHIN REACH. DOOR OPEN FOR EASY VIEW FROM NURSES STATION.
--- NOTE | 2018-02-13 14:08 | NUR ---
pt is sitting up in chair with call light in reach and family in room. pt was pulling on spann tube. pt was given a few items to keep her hands busy.
--- NOTE | 2018-02-13 14:38 | EKG ---
[facility] [address] [place], [place] [address] Signed Normal sinus rhythm Normal ECG No previous ECGs available Confirmed by GT VALENTINE DO ([id number]) on 02/13/2018 2:38:13 PM Electronically Signed By: GT VALENTINE DO 02/13/18 1438 PATIENT NAME: ARTIS DAIGLE Electrocardiogram DATE OF : 37 PHYSICIAN: GT VALENTINE DO REPORT #: [id number] REPORT IS CONFIDENTIAL AND NOT TO BE RELEASED WITHOUT AUTHORIZATION
--- NOTE | 2018-02-13 15:13 | NUR ---
THIS RN TO ROOM TO CHECK ON PT. FAMILY AT BEDSIDE. FAMILY HAS QUESTIONS ABOUT DRESSMAKER GARMENT FITTER PLAN OF CARE. PHYSICAL THERAPY, PLAN OF CARE, CASE MANAGMENT INVOLVEMENT, AND POST OP EDUCATION DISCUSSION HELD WITH FAMILY. FAMILY MEMBERS VERBALIZE UNDERSTANDING OF PLAN OF CARE AND WOULD LIKE TO BE PRESENT FOR A DISCUSSION WITH CASE MANAGEMENT REGARDING NEXT STEPS. FAMILY STATE THEIR QUESTIONS HAVE BEEN ANSWERED. FACES PAIN SCALE ATTEMPTED WITH PT. PT UNABLE TO USE FACES SCALE. PT APPEARS COMFORTABLE AND FAMILY STATE PT APPEARS WNL TO THEM. FAMILY REMAINS AT BEDSIDE. CALL LIGHT WITHIN REACH.
--- NOTE | 2018-02-13 16:21 | NUR ---
AFTERNOON ASSESSMENT AND MEDICATIONS DUE. THIS RN TO BEDSIDE. PT UP IN CHAIR VISITING WITH FAMILY. FAMILY WOULD LIKE PT TO ATTEMPT TO STAND. FWW AT BEDSIDE. GAIT BELT PLACED. PT ASSITED (2PA) TO STAND. STANDS WITH WALKER, TRANSFERS TO BED. PT PAINFUL UPON TRANSFER, 7/10 ON FACES SCALE. SEE MAR FOR MEDICATION GIVEN. DEPENDS CHANGED. SMALL SMEAR ON DEPENDS. SCDS, ABDUCTOR PILLOW, AND HEEL PROTECTORS IN PLACE. CELECOXIB GIVEN WITH PUDDING. FAMILY REMAINS AT BEDSIDE. PT APPEARS MORE RELAXED. BED RAILS UP. CALL LIGHT WITHIN REACH.
--- NOTE | 2018-02-13 16:33 | NUR ---
FAMILY LEAVING BEDSIDE FOR THE NIGHT. BED RAILS UP. BED ALARM ON. CURTAIN OPEN FOR EASY VIEW FROM NURSES STATION.
--- NOTE | 2018-02-13 17:30 | NUR ---
pt is resting safely in bed with call light in reach and bed alarm on, pt is very peacfully watching the music channel and does not need anything at the moment
--- NOTE | 2018-02-13 18:36 | NUR ---
PT HERE POST OP DAY 2 FOR DISPLACED R FEMORAL NECK FX. PT UP X1 TO STAND WITH FWW, 2PA, GAIT BELT. NECTAR THICK SOFT DIET. SPEECH/SWALLOW EVAL DUE THURSDAY. PIV IN RAC, PROTECTED WITH KAY WRAP. DRESSING CARMELO WITH SMALL AMT OF SHADOWING, NO CHANGE THIS SHIFT. PRN DILAUDID GIVEN X2 FOR PAIN. NON VERBAL PAIN SCALE USED. PT NOT ORIENTED. ASSITED WITH ALL ADLS. PT DOES NOT USE CALL LIGHT. BED/ CHAIR ALARM.
--- NOTE | 2018-02-13 19:15 | NUR ---
SHIFT REPORT RECEIVED. PATIENT IN BED, ALERT BUT ONLY ORIENTED TO SELF. SHE IS MORE VERBAL THAN THIS MORNING AND OCCATIONALLY ANSWERS QUESTIONS APPROPRIATELY. PATIENT DENIES PAIN. SHE IS LISTENING TO MUSIC AND APPEARS COMFORTABLE.
--- NOTE | 2018-02-13 20:00 | NUR ---
PATIENT CALLING OUT TO STAFF IN THE HALLWAY. SHE IS PLESANT AND WANTING TO SHOW THEM THINGS IN HER ROOM. SHE CONTINUES TO BE CONFUSED BUT APPEARS TO BE IN GOOD SPIRITS. NO SIGNS OF DISCOMFORT. IV FLUIDS INFUSING, SITE WNL. BAILEY IN PLACE, URINE CLEAR YELLOW. HIP ABDUCTOR, SCDS, HEEL PROTECTORS, AND AMANDO HOSE ARE IN PLACE. PATIENT DECLINES NEEDS. CALL LIGHT IN REACH.
--- NOTE | 2018-02-13 21:15 | NUR ---
EVENING MEDS GIVEN PER ORDER. PATIENT AGREEABLE TO TAKING NORCO WHICH WAS CRUSHED INTO SOME PUDDING, TOLERATED WELL. VS DONE, WNL. TOLERATING ROOM AIR. IV FLUIDS PER ORDER, SITE WNL. PATIENT DOESN'T FOLLOW COMMANDS FOR DEEP BREATHING. LUNGS CLEAR IN UPPER LOBES BILATERALLY, DIMINISHED IN THE BASES. PATIENT ORIENTED TO SELF ONLY. ABD IS SOFT, NONTENDER. BOWEL SOUNDS ACTIVE. WOUND TO RIGHT HIP IS C/D/I. NO EDEMA NOTED. CMS INTACT. ORAL CARE DONE WITH PARTIAL ASSIST.
--- NOTE | 2018-02-13 22:00 | NUR ---
PATIENT'S HIPS FLOATED ON PILLOWS TO REDUCE PRESSURE TO HER BACK SIDE. SHE TOLERATED PARTIAL ROLLING WELL.
--- NOTE | 2018-02-14 00:30 | NUR ---
NEW BAG OF IV FLUIDS STARTED. SITE WNL. PATIENT RESTING SOUNDLY. RR 20.
--- NOTE | 2018-02-14 02:15 | NUR ---
BAILEY EMPTIED. LARGE AMOUNT URINE OUTPUT, 800MLS. IV FLUIDS INFUSING, SITE WNL. PATIENT RESTING CALMLY & QUIETLY. SLEEPING ON & OFF. REPOSITIONED FOR COMFORT.
--- NOTE | 2018-02-14 03:45 | NUR ---
PATIENT RESTING IN BED. OPENED HER EYES WHEN RN ENTERED ROOM. CLOSED THEN WHEN ASKED IF SHE HAD ANY NEEDS. RR 20. REPOSIITONED PATIENT WHICH SHE TOLERATED WELL.
--- NOTE | 2018-02-14 05:00 | NUR ---
PATIENT SLEEPING SOUNDLY. RR 22.
--- NOTE | 2018-02-14 06:45 | NUR ---
PATIENT SLEPT ON AND OFF THROUGHOUT THE NIGHT. PAIN APPEARS CONTROLED WITH PRN NORCO. PATIENT TOLERATING THICKENED LIQUIDS AND PO MEDS WITH PUDDING. DRESSING IS C/D/I. PRN ICE TO AREA. HIP ABDUCTOR, HEEL PROTECTORS, SCDS, AND AMANDO HOSE IN USE. PATIENT HAS NOT BEEN OUT OF BED THIS SHIFT. REPOSITION Q2H. BAILEY IN PLACE. OUTPUT QS.
--- NOTE | 2018-02-14 07:03 | NUR ---
patient's vs done. spann emptied. she is sleeping soundly. opened her eyes to look at RN and then appeared to fall back into a deep sleep. vs wnl.
--- NOTE | 2018-02-14 09:41 | OR ---
[facility] [address] [place], [place] [address] Signed DATE OF OPERATION: 02/12/2018 SURGEON: Kelly Cohen MD PREOPERATIVE DIAGNOSIS: Displaced femoral neck fracture, left. POSTOPERATIVE DIAGNOSIS: Displaced femoral neck fracture, left. PROCEDURE PERFORMED: Left bipolar hemiarthroplasty. ASSISTANTS: Tatiana Richardson PA-C and LY Mcfadden. Tatiana was present for the surgery and scrubbed. She was in critical positioning, retraction, and wound closure. ANESTHESIA: Spinal. BLOOD LOSS: 200 mL. IMPLANTS: Minerva size 6 stem, 42-mm bipolar with +0, 26-mm head. BRIEF HISTORY: Artis is an 82-year-old female with history of severe dementia. She suffered a ground-level fall yesterday after tripping, landing on her hip and fracturing it. She was transported to the emergency department, admitted to my service for displaced femoral neck fracture. Risks, benefits, and alternatives of operative treatment discussed with her and son and they elected to proceed. Once medicine clearance was obtained, she was taken to the operating room. After adequate anesthesia, she was placed in the right lateral decubitus position. All downside pressure points well padded. An axillary roll was placed. The hip was then prepped and draped in a standard sterile fashion. The hip was approached through a 4-inch incision and centered over the trochanter. It was taken through skin and subcutaneous tissue. The IT band was divided longitudinally and the vastus lateralis was then split from the tip of the trochanter distally and elevated in a subperiosteal manner around the level of the lesser trochanter. The gluteus minimus and capsule were split sharply after dividing the Electronically Signed By: KELLY COHEN MD 02/14/18 0941 PATIENT NAME: ARTIS DAIGLE OPERATIVE REPORT DATE OF : 37 REPORT #: [id number] PHYSICIAN: KELLY COHEN MD PCP: Richard Lackey DO REPORT IS CONFIDENTIAL AND NOT TO BE RELEASED WITHOUT AUTHORIZATION [facility] [address] [place], [place] [address] Signed gluteus medius. This was elevated off the anterior femoral neck. The femoral fracture was subcapital. This was shortened to a standard one fingerbreadth above the level of the lesser trochanter. The femoral head was then removed taken back table, measured to 42. The attention was then turned to proximal femur, which was opened using [employer] cutter, followed by the Charbriaey awl. It was then broached up to a 6 and 6 was found to be well fitting. The 6 stem was obtained and posterior head and a 26 mm +0 head and a 42-mm bipolar were placed and the hip was reduced. The leg lengths were found to be equal. She had excellent range of motion. She had negative shuck and negative impingement. The wound was copiously irrigated with antibiotic solution. The periarticular soft tissues were injected with 60 mL ropivacaine and Toradol mixture. The capsule was then closed using #1 Vicryl. The vastus and IT band layers were closed independently using #1 Stratafix. Subcutaneous tissue with 0 Stratafix, and skin with tigre. Wound was dressed with Mepilex Ag dressing and Opsite. She was placed in hip abduction brace, taken to the recovery room in satisfactory condition. All sponge, needle, and instrument counts were correct. Kelly Cohen MD BA/TARA /[id number] Copies: ~ Electronically Signed By: KELLY COHEN MD 02/14/18 0941 PATIENT NAME: ARTIS DAIGLE OPERATIVE REPORT DATE OF : 37 REPORT #: [id number] PHYSICIAN: KELLY COHEN MD PCP: Richard Lackey DO REPORT IS CONFIDENTIAL AND NOT TO BE RELEASED WITHOUT AUTHORIZATION
--- NOTE | 2018-02-14 10:03 | NUR ---
MORNING ASSESSMENT AND MEDICATIONS DUE. THIS RN TO BEDSIDE. CURTAINS OPEN. PT AWAKENS TO VOICE. PT HAD LARGE BM IN BED. PT CLEANED. CORA CARE DONE. CATHETER CARE DONE. PT ASSISTED UP TO CHAIR (3PA, PIVOT TO CHAIR). PT APPEARS PAINFUL, 7/10 ON FACES SCALE. SEE MAR FOR MEDICATION GIVEN. ASSESSMENT DONE. PHYSICAL THERAPY PRESENT FOR PIVOT TO CHAIR. DR. BARAJAS TO BEDSIDE FOR ROUNDS. MEDICATIONS GIVEN WITH PUDDING. PT TOLERATES SWALLOWING MEDICATIONS AND PUDDING WELL. REMAINS AT BEDSIDE, HELPING PT EAT AND ENCOURAGING FLUIDS. CALL LIGHT WITHIN REACH. CHAIR ALARM ON.
--- NOTE | 2018-02-14 11:02 | NUR ---
MD ORDERED REMOVAL OF BAILEY CATHETER. THIS RN TO BEDSIDE, CATHETER REMOVED WITHOUT ISSUE. DEPENDS AND PERIPAD IN PLACE. PATIENT RESTING IN CHAIR WITH IN ROOM.
--- NOTE | 2018-02-14 11:05 | NUR ---
ORDERS REMOVAL OF BAILEY CATHETER. THIS RN TO ROOM WITH SAIDA MEDRANO. MITCHELL REMOVES BAILEY CATHETER PER PROTOCOL. PER PAD PLACED FOR ADDITIONAL ABSORPTION. PT REMAINS UP TO CHAIR. PT APPEARS MORE RELAXED AND STATES PT DOES NOT APPEAR TO BE IN PAIN. FACES PAIN SCALE NOWS SHOWS 2/10. SOFT BALL PROVIDED FOR PT TO KEEP HANDS BUSY. PT VISITING WITH . CALL LIGHT WITHIN REACH. BED ALARM ON.
--- NOTE | 2018-02-14 13:10 | NUR ---
THIS RN AND [employer]EE ARCHITECT TO BEDSIDE TO CHECK PT DEPENDS. DEPENDS SATURATED, 2ND BM NOTED. PT UP TO STAND WITH 2PA AND FWW. PT CLEANSED, DEPENDS CHANGED, FRESH CORA PAD IN PLACE. PT BACK TO CHAIR. PT ABLE TO REACH FOR WATER BOTTLE AND DRINK WATER INDEPENDANTLY. FAMILY AT BEDSIDE VISITING WITH PT. MUSIC PROVIDED FOR PT FOR COMFORT. CALL LIGHT WITHIN REACH. CHAIR ALARM ON. NEW WARM BLANKETS PROVIDED. NO ADDITIONAL REQUESTS OR COMPLAINTS AT THIS TIME.
--- NOTE | 2018-02-14 14:15 | NUR ---
THIS RN TO ROOM. PT UP WITH FWW WITH ASSISTANCE FROM TRAY, RN, JO-ANN (RN) AND MITCHELL (RN), AND CAIO (SUPPLY CHAIN PLANNER). PT ON COMODE FOR BM. PT UP TO STAND WITH FWW AND 2PA, CLEANED AND BACK TO CHAIR. NEW DEPENDS IN PLACE. ABDUCTOR JUSTUSOW, SCD'S IN PLACE. FAMILY AT BEDSIDE. CHOCOLATE ENSURE MILKSHAKE PROVIDED. CALL LIGHT WITHIN REACH. CHAIR ALARM ON.
--- NOTE | 2018-02-14 14:21 | NUR ---
pt is sitting up in chair with feet elevated, call light in reach, tag alarm on, and family in room. family asked for a milkshake for pt, nurse gulshan got it for them.
--- NOTE | 2018-02-14 16:38 | NUR ---
AFTERNOON ASSESSMENT AND MEDICATIONS DUE. PATIENT WAS RESTING COMFORTABLY IN CHAIR LISTENING TO MUSIC WITH TOES MOVING TO BEAT. ASSESSMENT DONE. MEDICATION GIVEN WITH CHOCOLATE ENSURE. PATIENT UP TO STAND. DEPENDS CHANGED, CORA CARE DONE. PATIENT BACK TO CHAIR, ABDUCTOR PILLOW IN PLACE, SCD'S ON, DRESSING C/D/I. CHAIR ALARM ON, CALL LIGHT WITHIN REACH. DOOR AND CURTAIN OPEN FOR EASY VIEW FROM NURSING STATION.
--- NOTE | 2018-02-14 18:14 | NUR ---
ASSESSMENTS AND NOTES DONE BY SAIDA MEDRANO, DONE WITH THIS NURSE PRESENT. ASSESSMENTS AND NOTS REVIEWED BY THIS RN. THIS RN IN AGREEMENT.
--- NOTE | 2018-02-14 18:25 | NUR ---
pt transferred back to bed via 2 person transfer. pt resting in bed with call light in reach.
--- NOTE | 2018-02-14 18:34 | NUR ---
THIS RN TO ROOM TO CHECK ON PT. PT APPEARS PAINFUL AFTER MOVING BACK TO BED AND DEPENDS CHANGE. 5/10 ON FACES PAIN SCALE. MEDICATION ATTEMPTED. PT REFUESES TO EAT/SWALLOW. PT DRIFTS QUICKLY BACK TO SLEEP. RR = 17. PIV RECONNECTED TO FLUIDS AFTER MOVE BACK TO BED. PIV LEAKING. PIV DC'D PER PROTOCOL. NEW PIV STARTED PER PROTOCOL. 1 ATTEMPT BY SAIDA MEDRANO. 2ND ATTEMPT BY THIS RN (SEE VASCULAR ACCESS). PIV WRAPPED WITH KAY WRAP TO PROTECT SITE FROM ACCIDENTAL DC. BED RAILSUP. CALL LIGHT WITHIN REACH. BED ALARM ON. CURTAIN AND DOOR OPEN FOR EASY VISUALIZATION FROM NURSES STATION.
--- NOTE | 2018-02-14 18:59 | NUR ---
PT HERE POST R DISPLACED FEMORAL NECK FX AND SURGIAL REAPAIR. 2-3PERSON HEAVY ASSIT, FWW. GOOD APPITITE TODAY, SOFT/REGULAR DIET. NEEDS ASSISTANCE WITH FEEDING. ENCORUGE INTAKE. DRINKING MINIMAL AMOUTS ON HER OWN TODAY. SPEECH EVL SCHEDULED FOR THURSDAY. LARGE BMS TODAY, NEEDS FREQUENT CHANGING. KARY CHAUDHARY'Scooter. RECOMEND HOLDING BOWEL MEDICATIONS TONIGHT. DRESSING CDI. PHYSICAL THERAPY INVOLVED. BED/CHAIR ALARM. PRN PAIN MEDICATIONS, DOES NOT RATE PAIN. USE FACES SCALE. DOES NOT USE CALL LIGHT.
--- NOTE | 2018-02-14 19:25 | NUR ---
BEDSIDE REPORT RECEIVED FROM SAIDA MCKEON. PT RESTING IN BED, BREATHING NON-LABORED. AWAKENS TO VOICE. IVF INFUSING WNL. DRESSING CDI ON LEFT HIP, HIP WEDGE, SCDS, AND HEEL PROTECTORS IN PLACE. PT HAS CALL LIGHT NEXT TO RIGHT ARM, BED ALARM SET.
--- NOTE | 2018-02-14 21:03 | NUR ---
ROUNDED CHARGE. PATIENT IS RESTING IN BED. PATIENT OFFERED A DRINK OF WATER. PATIENTS CALL LIGHT IS WITHIN REACH.
--- NOTE | 2018-02-14 22:35 | NUR ---
PATIENT ASSISTED TO STAND AT THE BEDSIDE. PATIENT STRUGGLED AT FIRST TO STAND. PATIENT WAS ASSISTED BY 3 STAFF. PATIENT WAS ABLE TO SHUFFLE TO THE SIDE. PATIENT STRUGGLED TO FOLLOW INSTRUCTIONS. PATIENT IS NOW BACK IN BED RESTING. BED ALARM IS ON. PATIENTS CALL LIGHT IS WITHIN REACH. PATIENT WAS ABLE TO STAND FOR 3 MINUTES BEFORE STATING "I NEED TO SIT".
--- NOTE | 2018-02-14 22:45 | NUR ---
PT ASSESSMENT COMPLETE. PT ORIENTED TO PERSON. DOES NOT RATE PAIN, POINTS TO LEFT HIP WHEN ASKED IF SHE HURTS, ELLA GUNTER ADMINISTERED FOR PAIN W PUDDING. CSM INTACT BUE AND BLE, MEPILEX CDI LEFT HIP. ICE PACK IN PLACE LEFT HIP. CALL LIGHT IN REACH.
--- NOTE | 2018-02-14 23:23 | NUR ---
IN PT ROOM, ICE PACK REMOVED AT THIS TIME PER ORDERS. PT APPEARS TO BE SLEEPING, EYES CLOSED, BREATHING NON-LABORED. CALL LIGHT IN REACH, BED ALARM ON.
--- NOTE | 2018-02-15 01:00 | NUR ---
CHECKED ON PT, APPEARS TO BE SLEEPING, EYES CLOSED, BREATHING NON-LABORED, SCDS, HEEL PROTECTORS, HIP WEDGE IN PLACE. IVF INFUSING. BED ALARM ON.
--- NOTE | 2018-02-15 03:30 | NUR ---
PT ASSESSMENT COMPLETE, INCONTINENT OF URINE, ATTENDS AND CHUX CHANGED WITH 3PA. IVF INFUSING WNL. DRESSING CDI LEFT HIP. ICE PACK IN PLACE. CSM INTACT BUE, BLE. PT APPEARS COMFORTABLE, LYING ON BACK, LEGS STRAIGHT, HEEL PROTECTORS, SCDS, AMANDO HOSE, AND HIP ABDUCTOR IN PLACE. BED ALARM ON. CALL LIGHT NEXT TO PT.
--- NOTE | 2018-02-15 05:24 | NUR ---
PT ABLE TO STAND AT BEDSIDE FOR 3 MINUTES THIS SHIFT WITH 3PA, MOVE SIDE TO SIDE. PRN NORCO FOR PAIN X 1. PT HAS APPEARED COMFORTABLE, SLEEPING FOR MOST OF SHIFT. HIP ABDUCTOR, SCDS, AMANDO HOSE, AND HEEL PROTECTORS IN PLACE. ICE PRN TO LEFT HIP. DRESSING CDI WITH MEPILEX AND OP SITE. CSM INTACT BUE, BLE. BED ALARM IN PLACE. PO PILLS CRUSHED IN PUDDING.
--- NOTE | 2018-02-15 06:55 | NUR ---
PT SLEEPING, AWAKENS TO VOICE. PREMEDICATED PT WITH PRN NORCO FOR AMBULATION. ATTENDS CHANGED, INCONTINENT OF URINE. 3PA W FWW FROM BED TO CHAIR, LEGS ELEVATED. CHAIR ALARM ON. PT REFUSES PO FLUIDS AT THIS TIME.
--- NOTE | 2018-02-15 09:15 | NUR ---
PT SLEEPING IN RECLINER. AWOKE EASILY TO VOICE. PT ORINETED TO NAME ONLY, HAS DIFFICULTLY VERBALIZING NORMAL SPEECH, RESPONDS USUALLY WITH ONLY YES OR NO. DENIES PAIN AT THIS TIME. LEFT HIP DRESSING CDI, CMS INTACT. IV INFUSING WNL. PT TOOK PILLS WITH PUDDING, REQUIRED PROMPTING TO SWALLOW. REQUIRED ASSISTANCE WITH EATING PT WILL NOT INITIATE EATING INDEPENDENTLY. CHAIR ALARM ON.
--- NOTE | 2018-02-15 10:05 | NUR ---
PT ASSISTED TO STAND FROM CHAIR WITH ALFONSO Ellis, THIS RN, AND ABHILASH FOX. PT INCONTINENT OF URINE AND BM. PT TRANSFERRED WITH MAX ASSIST TO COMMODE. PT HAD MORE BM. PT CLEANED THOROUGHLY, NEW ATTEND APPLIED, AND ASSISTED BACK TO RECLINER. CHAIR ALARM IN PLACE, CALL LIGHT WITHIN REACH.
--- NOTE | 2018-02-15 10:30 | NUR ---
PATIENT UP IN CHAIR. LINENS CHANGED. FAMILY IN ROOM AT THIS TIME. NO FURTHER NEEDS AT THIS TIME. CALL LIGHT IN REACH.
--- NOTE | 2018-02-15 10:35 | NUR ---
CARE CONFERENCE ATTENDEES: PT,DAUGHTERS MARYELLEN AND GORDY. STAFF: MYSELF FROM CASE MANAGEMENT, LASHAY PT RN, ALFONSO PT. WE DISCUSSED THAT PT FELL, BROKE HER HIP, HAD SURGERY AND THAT NOW WE ARE TO THE RECOVERY TIME AND THAT NORMALLY PT WOULD GO DIRECTLY TO A SNF/SWING BED. PT IS WORKING WITH THE PT HOWEVER WITH HER COGNITIVE ISSUES PT PARTICIPATION IS LIMITED AND NOT SURE IF THE SNF WILL TAKE HER FOR SKILLED CARE WITH THE NOTES FROM THERAPY. IF SO, GAVE THE FAMILY OF ALL LOCAL FACILITIES AND TOLD THEM I WOULD BE GLAD TO MAKE ARRANGEMENTS FOR ANYONE OF THEM. MARYELLEN STATES WELL DR BARAJAS STATED THAT [facility] HAS A SNF AND SHE MAY BE ABLE TO GO TO THERE. I TOLD THEM I WOULD GLADLY LOOK INTO IT. WE DID TALK ABOUT THE POSSIBILITY OF HER NOT BEING ABLE TO BE IN A REHAB DUE TO HER COGNITIVE STATE AND EVEN BEING IN A REHAB SHE MAY NOT BENEFIT FROM THIS. THE DAUGHTERS STATE THEY UNDERSTAND THAT AT THIS TIME AND WOULD LIKE ME TO SEE IF THEY CAN TAKE HER AT [facility].
--- NOTE | 2018-02-15 11:17 | NUR ---
CARE CONFERENCE COMPLETED WITH PT, JEREMIAH ADJUNCT FACULTY, THIS RN, ALFONSO Ellis, AND PT'S TWO DAUGHTERS.
--- NOTE | 2018-02-15 12:33 | NUR ---
PT IS SITTING IN CHAIR, IN NO PAIN AND SURROUNDED BY FAMILY. FAMILY REQUESTED THAT THEY WOULD LIKE TO VISIT WITH DR BARAJAS IF POSSIBLE WHILE THEY ARE HERE. I WILL PASS ALONG REQUEST. EXTENDED A BLESSING, WILL FOLLOW NEEDED
--- NOTE | 2018-02-15 13:30 | NUR ---
FAXED CHART NOTES TO [facility] INCLUDING FACESHEET, ER NOTES, H AND P, OP NOTES, PROG NOTES, IMAGING AND PT EVAL AND NOTES. RECIEVED A FAX CONFIRMATION OF THIS.
--- NOTE | 2018-02-15 13:45 | NUR ---
PT 2PA WITH WALKER TO TRANSFER TO [facility]. PT REQUIRES A LOT OF PROMPTING AND INSTRUCTION TO FOLLOW COMMANDS FOR MOVEMENT. PT WAS INCONTINENT OF URINE, VOIDED AND HAD SMALL BM ON COMMODE. CLEAN ATTEND APPLIED AND PT ASSISTED BACK TO RECLINER. PT REPORTED THAT SHE WAS HAVING PAIN. MEDICATED WITH PRN NORCO. CHAIR ALARM ON. CALL LIGHT WITHIN REACH. DAUGHTERS AT BEDSIDE.
--- NOTE | 2018-02-15 14:49 | NUR ---
PATIENT SITTING UP IN CHAIR WITH FAMILY IN ROOM. PATIENT WAS ABLE TO FEED HERSLEF AFTER GIVING HER A COUPLE OF BITES. PATIENT IS LAUGHING AND SMILING. CALL BUTTON IN REACH. NO OTHER NEEDS AT THIS TIME.
--- NOTE | 2018-02-15 15:26 | NUR ---
PT UP IN HALLS AMBULATING WITH 2 PERSON ASSIST AND FWW.
--- NOTE | 2018-02-15 15:27 | NUR ---
RECIEVED A CALL FROM [facility] AT 1451 STATING THEY WOULD BE UNABLE TO ACCEPT THIS PT. I THEN WENT AND SPOKE WITH THE PT FAMILY-MARYELLEN, CRISTÓBAL, AND SOURAV ABOUT THIS AND THEY WOULD LIKE ME TO TRY CALLING [facility] IN [place]. I CALLED AND SPOKE WITH MARIA AND SHE STATES SHE IS IN TOWN AND WILL BE AVAILABLE TO COME AND TALK THE FAMILY AND MYSELF ABOUT THIS PT. FAMILY HAD JUST LEFT SO I CALLED AND THEY SAID THEY WOULD COME BACK TO MEET WITH HER.
--- NOTE | 2018-02-15 15:50 | NUR ---
PT SITTING UP IN BED AFTER AMB HALLWAY WITH P.T., DENIES PAIN OR OTHER CONCERNS. FAMILY AT BEDSIDE. BED ALARM ON. PT GIVEN FRESH WATER, THICKENED.
--- NOTE | 2018-02-15 16:04 | NUR ---
PATIENT WENT FOR WALK WITH PT. PATIENT THEN BACK TO BED AND GIVEN A BED BATH. CLEAN GOWN AND DEPENDS GIVEN. PATIENT NOW LAYING IN BED RESTING. CALL LIGHT IN REACH. NO FURTHER NEEDS AT THIS TIME.
--- NOTE | 2018-02-15 17:04 | NUR ---
MARAI FROM [facility] [place] IS HERE, VISITED WITH PT AND HER FAMILY AND STATES THEY WILL NOT HAVE A PROBLEM TAKING HER, THEY ALSO WILL PROVIDE TRANSPORT TO THEIR FACILITY FROM HERE. MARIA TOOK PT PACKET THAT INCLUDED FACESHEET, ER NOTES, H AND P, PROG NOTES, CONSULT, OP NOTE, PT EVAL AND NOTES WELL IMAGING. SHE IS HAND CARRYING THEM.
--- NOTE | 2018-02-15 17:32 | NUR ---
PT SITTING UP IN BED ALERT BUT REMAINS ORIENTED TO SELF ONLY. EATING DINNER MOSTLY INDEPENDENTLY BUT DOES REQUIRE OCCASIONAL CUEING ON USING UTENSILS. PT DENIES PAIN AT THIS TIME. BED ALARM ON. ADDUCTOR PILLOW IN PLACE.
--- NOTE | 2018-02-15 18:08 | NUR ---
PATIENT SITTING IN CHAIR WITH WARM BLANKET. CALL LIGHT IN REACH. NO FURTHER NEEDS AT THIS TIME.
--- NOTE | 2018-02-15 20:00 | NUR ---
RESUMED CARE AND RECIEVED REPORT FROM SAIDA SADLER. PT SITTING UP IN CHAIR WITH CHAIR ALARM ATTACHED. PT COMMUNICATING, DENIES PAIN, NO EXPRESSION, APPEARS RELAXED. LEGS ELEVATED. PO FLUIDS AND CALL LIGHT IN LAP.
--- NOTE | 2018-02-15 21:56 | NUR ---
PRN PAIN MEDICATIONS GIVEN TO PT. PT UP IN CHAIR. C.O. PAIN IN HIP WHEN ASKED. PT ORIENTED TO SELF. CMS INTACT. LEGS ELEVATED. IV SALINE LOCKED. CALL LIGHT IN LAP AND CHAIR ALARM ON PT.
--- NOTE | 2018-02-15 23:15 | NUR ---
PT REFUSED TO BEAR OWN WEIGHT TO TRANSFER TO BED. KENDRA LIFT USED FROM CHAIR TO BED WITH 4 PERSON ASSIST. INCONTINENT OF URINE, ATTENDS AND GOWN CHANGED. MEPILEX CLEAN, DRY AND INTACT. MINIMAL BRUISING BELOW DRESSING. HIP WEDGE, AMANDO HOSE, SCD'S, HEEL PROTECTORS IN PLACE. BED ALARM ON AND PATIENT HOLDING ONTO CALL LIGHT.
--- NOTE | 2018-02-16 01:00 | NUR ---
PT AWAKE IN BED. HIP WEDGE, SCD'S, AMANDO HOSE, HEEL PROTECTORS IN PLACE. BED ALARM ON AND CALL LIGHT IN REACH.
--- NOTE | 2018-02-16 03:32 | NUR ---
ASSESSMENT COMPLETE. PT ATTENDS CHANGED. OP SITE REINFORCED ON LEFT HIP MEPILEX, CLEAN, DRY AND INTACT. CMS INTACT. HIP WEDGE, HEEL PROTECTORS, SCDS, AND AMANDO HOSE IN PLACE. BED ALARM ON AND CALL LIGHT IN REACH.
--- NOTE | 2018-02-16 05:07 | NUR ---
PT SLEPT ON AND OFF THROUGHOUT THE NIGHT. PRN NORCO GIVEN X1, PT ABLE TO SWALLOW PILL WHOLE WITH COACHING. PT TOLERATING NECTAR THICK LIQUIDS. HIP WEDGE, SCD'S, AMANDO HOSE, AND HEEL PROTECTORS IN PLACE. IV SALINE LOCKED. NEW OP SITE PLACED OVER MEPILEX. MEPILEX CLEAN DRY AND INTACT. BED ALARM IN PLACE. PATIENT ONLY ORIENTED TO SELF. UP IN CHAIR AT START OF SHIFT, KENDRA TRANSFER TO BED. PT AMBULATES WITH 2PA AND FWW.
--- NOTE | 2018-02-16 06:45 | NUR ---
PT SLEEPING IN BED. IN ROOM TO CHANGE ATTENDS, PT TOLERATED WELL. HIP WEDGE, SCD'S, AMANDO HOSE, AND HEEL PROTECTORS IN PLACE. BED ALARM ON AND CALL LIGHT IN REACH. PT REQUESTED TO REST IN BED.
--- NOTE | 2018-02-16 07:45 | NUR ---
PATIENT SIT UP AT BEDSIDE WITH 2 PERSON ASSIST FWW AND GAITBELT. PATIENT WAS UNCOOPERATIVE TO GET TO CHAIR. THIRD PERSON TO ASSIST WITH TRANSFERING TO CHAIR. PATIENT SITTING UP WITH BREAKFAST TRAY. LINING MAKER HAND ASSISTED PATIENT IN EATING. CALL LIGHT IN REACH.
--- NOTE | 2018-02-16 09:17 | NUR ---
MORNING ASSESSMENT DONE. PATIENT UP IN CHAIR EATING BREAKFAST. PATIENT RESPONDS TO NAME BUT UNABLE TO SAY HER NAME WHEN ASKED. PATIENT IS COOPERATIVE. MORNING MEDICATIONS GIVEN WITH PUDDING. SCD'S ON. CHAIR ALARM ON. CALL LIGHT WITH IN REACH. CURTAIN AND DOOR OPEN TO NURSES STATION FOR EASY VIEWING.
--- NOTE | 2018-02-16 10:22 | NUR ---
THIS RN TO BEDSIDE WITH PHYSICAL THERAPY. SWALLOW EVAL COMPLETE. SWALLOW SPECILIST RECCOMENDS A CHOPPED DIET, DIET ADVANCED. PT TOLERATING PO WELL. PT ASSITED UP TO WALK WITH 2PA, PHYSICAL THERAPY PRESENT. PT AMBULATED OUTSIDE OF ROOM, APROXIMATELY 50FT. PT BACK TO CHAIR BY WHEELCHAIR. PT TRANSFERES SELF TO CHAIR WITH 2PA, FWW. PAIN MEDICAITON GIVEN (SEE MAR) FOR 5/10 FACES SCALE PAIN. FAMILY AT BEDSIDE. PT ASSESSEMENT DONE BY SAIDA MEDRANO REVIWED BY THIS RN. NO ADDITIONAL REQUESTS OR COMPALINTS. CALL LIGHT WITHIN REACH. CHAIR ALARM ON.
--- NOTE | 2018-02-16 10:24 | NUR ---
PHYSICAL THERAPY REQUESTED ASSISTANCE WITH AMBULATION. 2PA, FWW. PATIENT AMBULATED DOWN LUNA. PATIENT FOLLOWED MOST COMMANDS, REQUIRED CUEING. PATIENT APPEARED TO BE IN PAIN. ADMINISTERED PAIN MEDICATION (SEE MAR). PATIENT RESTING IN CHAIR WITH DAUGHTER AND AT SIDE. ABDUCTOR PILLOW IN PLACE. SCD'S ON. CHAIR ALARM ON. CALL LIGHT WITHIN REACH.
[2018-02-16] MEDS ORDERED: ADVANCED PROBI625 MG PO (11:03)
--- NOTE | 2018-02-16 11:06 | NUR ---
MED REC COMPLETE
--- NOTE | 2018-02-16 12:21 | NUR ---
ASSESSED PATIENT. PATIENT FEEDING SELF FROM ICE CREAM CUP. DAUGHTER AT SIDE. PATIENT RESPONDING MORE APPROPRIATELY. NO PAIN REPORTED AND PATIENT APPEARS TO BE FREE OF PAIN. DAUGHTER AGREES. PATIENT IN CHAIR WITH CHAIR ALARM ON. ABDUCTOR PILLOW IN PLACE, SCD'S ON. CALL LIGHT WITHIN REACH. DOOR AND CURTAIN OPEN FOR EASY VIEWING FROM NURSES STATION.
--- NOTE | 2018-02-16 12:44 | NUR ---
ASSESSMENTS AND NOTES BY SAIDA MEDRANO. REVIEWED BY THIS RN. THIS RN IN AGREEMENT.
--- NOTE | 2018-02-16 13:30 | NUR ---
THIS RN TO ROOM TO ROUND WITH MD. PTS FAMILY AT BESIDE AND VERBALIZES UNDERSTANDING OF PLAN OF CARE. PT UP IN CHAIR. SCD'S, ABDUCTOR PILLOW IN PLACE. PT APPEARS PEACFUL, SMILING. CHAIR JACLYN ON. CALL LIGHT WITHIN REACH.
--- NOTE | 2018-02-16 13:45 | NUR ---
ENTERED PT'S RM-HER DAUGHTER WAS ASSISTING HER WITH LUNCH. DAUGHTER INFORMED ME THAT PT IS HEADED TO [facility] IN [facility], TO BE NEARER FAMILY FOR REHAB. THE HOPE IS THAT SHE WILL IMPROVE ENOUGH TO TRANSFER TO [facility] IN [facility]. I ENCOURAGED THE DAUGHTER TO KNOW WHAT THE DR ORDERS ARE FOR HER MOTHER, AND MAKE SURE THAT BRAD DOES ALSO. GOOD VISIT, EXTENDED A BLESSING. WILL FOLLOW NEEDED
--- NOTE | 2018-02-16 13:52 | NUR ---
PROVIDED CORA CARE TO PATIENT. PATIENT WAS ABLE TO STAND BRIEFLY WITH 2 PA AND FWW. DEPENDS AND PERIPAD CHANGED. PATIENT SITTING IN CHAIR LISTENING TO MUSIC. CHAIR ALARM ON. SCD'S ON. ABDUCTOR PILLOW IN PLACE. CURTAIN AND DOOR OPEN FOR EASY VIEWING FROM NURSES STATION. CALL LIGHT WITHIN REACH.
--- NOTE | 2018-02-16 14:00 | NUR ---
PATIENT SITTING IN CHAIR. DAUGHTER IN ROOM. FRESH ICE WATER GIVEN. CALL LIGHT IN REACH. NO FURTHER NEEDS AT THIS THIS TIME.
--- NOTE | 2018-02-16 14:36 | NUR ---
ASSISTED PHYSICAL THERAPY TO AMBULATE PATIENT DOWN LUNA. PATIENT SITTING IN CHAIR SLEEPING. SCD'S ON, ADDUCTOR PILLOW IN PLACE. CHAIR ALARM ON. DOOR AND CURTAIN OPEN FOR EASY VIEWING FROM NURSES STATION. CALL LIGHT WITHIN REACH.
--- NOTE | 2018-02-16 15:36 | NUR ---
THIS RN TO ROOM TO CHECK ON PT. PT UP IN CHAIR. PT APPEARS COMFORTABLE. NOTES BY SAIDA MEDRANO. REVIEWED BY THIS RN. CHAIR ALARM ON. SCD'S ON. CALL LIGHT WITHIN REACH. DOOR OPEN FOR EASY VIEW FROM NURSES STATION.
--- NOTE | 2018-02-16 17:06 | NUR ---
ASSESSMENT AND MEDICATIONS DUE. PATIENT IS AGITATED AND UNCOOPERATIVE DURING ASSESSMENT. PAIN MEDICATION ADMINISTERED PATIENT STATED IT HURT "RIGHT HERE" WHILE POINTING AT HER HIP (SEE MAR). PATIENT THREATENED TO "WHACK" SAIDA MCKEON DURING ASSESSMENT. PATIENT WORKING ON A TOWEL WITH HER HANDS. PATIENT WAS WORKING WITH GAUZE PRIOR WHICH WAS TAKEN AWAY IT COULD BE A CHOKING HAZARD. PATIENT IN CHAIR LISTENING TO MUSIC. ADDUCTOR PILLOW IN PLACE. SCD'S ON. CHAIR ALARM ON. CURTAIN AND DOOR OPEN FOR EASY VIEWING FROM NURSES STATION. CALL LIGHT WITHIN REACH.
--- NOTE | 2018-02-16 17:23 | NUR ---
THIS RN TO ROOM. ASSESSMENT BY SAIDA MEDRANO REVIWED AND AGREED WITH BY THIS RN. PT AGITATED (SEE NOTE BY SAIDA MEDRANO). PT UP TO CHAIR. SCD'S, CHAIR ALARM, CALL LIGHT WITHIN REACH. DOOR OPEN FOR VIEW FROM NURSES STATION.
--- NOTE | 2018-02-16 17:30 | NUR ---
PATIENT AMBULATED WITH PHYSICAL THERAPY x2, 2PA, FWW. SWALLOW EVALATION CLEARED THE PATIENT FOR A CHOPPED DIET AND THIN LIQUIDS. FAMILY WAS AT BEDSIDE MOST OF THE DAY. PATIENT SHOWED INDEPENDENCE IN EATING AND DRINKING. THE PLAN IS TO DISCHARGE TOMORROW.
--- NOTE | 2018-02-16 17:32 | NUR ---
PT HERE POFT LEFT DISPLACED FEMORAL NECK FX AND REPAIR. 2PA, FWW. AMBULATED X2 TODAY WITH PHYSICAL THERAPY AND RN ASSISTANCE. PRN LYRIC GIVEN X3 TODAY FOR FACES PAIN SCALE RAITINGS. PT AGITATED THIS PM. GOOD APPITITE TODAY, PT FEEDING SELF. SWALLOW EVAL ADVANCED DIET TO CHOPPED AND THIN LIQUIDS. EXPECTED DISCHARGE TOMORROW. BED/CHAIR ALARM. PT DOES NOT USE CALL LIGHT.
--- NOTE | 2018-02-16 17:47 | NUR ---
PATIENT SITTING UP IN CHAIR FEEDING HERSELF DINNER LOOING OUT THE WINDOW. CALL BUTTON IN REACH. CHAIR ALARM ON.
--- NOTE | 2018-02-16 19:08 | NUR ---
THIS RN TO ROOM TO CHECK ON PT. GEOPHYSICAL COMPUTER'S TRANSFERING PT BACK TO BED. PT CONTINUES TO BE ANXIOUSAND COMBATIVE. PT TENSE AT TIMES. 4/10 ON PAIN SCALE. HAND OFF REPORT GIVEN TO EVENING RN.
--- NOTE | 2018-02-16 19:35 | NUR ---
RECIEVED REPORT FROM SAIDA MEDRANO AT 1935. PT IS SLEEPING IN BED. HIP WEDGE, SCD'S, AMANDO HOSE, AND HEEL PROTECTORS IN PLACE. R HIP DRESSING CLEAN, DRY, AND INTACT. BED ALARM ON AND CALL LIGHT IN REACH.
--- NOTE | 2018-02-16 21:45 | NUR ---
PT SLEEPING IN BED. EVEN AND UNLABORED RESPIRATIONS. AMANDO HOSE, SCD'S, HEEL PROTECTORS, AND HIP WEDGE IN PLACE. BED ALARM ON AND CALL LIGHT IN REACH.
--- NOTE | 2018-02-16 23:09 | NUR ---
PT ASSESSMENT COMPLETE. LEFT HIP OP SITE AND MEPILEX CLEAN, DRY, AND INTACT. IV SALINE LOCKED. ATTENDS CHANGED, X1 BM AND VOID. CMS INTACT. HIP ABDUCTOR, AMANDO HOSE, SCD'S, AND HEEL PROTECTORS IN PLACE. BED ALARM ON AND CALL LIGHT IN REACH. ICE PACK APPLIED TO LEFT HIP ORDERED.
--- NOTE | 2018-02-16 23:20 | NUR ---
PHONE CALL FROM , NOTIFIED THAT COMFORT MEASURES WILL BE PLACED, ORDER TO REMOVE FROM BIPAP. BIPAP REMOVED AT THIS TIME, RT ALFONSO IN ROOM. PT ON ROOM AIR, BREATHING LABORED, ACCESSORY MUSCLE USE. PT IS NOT REPSONSIVE VERBALLY, NOT OPENING EYES. BERNY RN TO CALL TO NOTIFY OF STATUS.
--- NOTE | 2018-02-17 00:08 | NUR ---
PT SLEEPING IN BED. BREATHING EVEN AND UNLABORED. AMANDO REINOSO, SCDS, HIP ABDUCTER, AND HEEL PROTECTORS IN PLACE. CALL LIGHT IN REACH AND BED ALARM ON.
--- NOTE | 2018-02-17 01:55 | NUR ---
PT SLEEPING IN BED. BREATHING UNLABORED. AMANDO REINOSO, SCD'S, HEEL PROTECTORS, AND HIP ABDUCTOR IN PLACE. BED ALARM ON AND CALL LIGHT IN REACH.
--- NOTE | 2018-02-17 03:48 | NUR ---
ASSESSMENT COMPLETE. MEPILEX AND OP SITE CLEAN DRY AND INTACT. CMS INTACT. ATTENDS CHANGED BM AND VOID. PT DENIES PAIN AND DOES NOT APPEAR IN PAIN WHEN CHANGED, NO FACIAL EXPRESSION. OFFERED PO FLUIDS, PT DENIED. AMANDO HOSE, SCDS, HEEL PROTECTORS, AND HIP WEDGE IN PLACE. BED ALARM ON.
--- NOTE | 2018-02-17 05:09 | NUR ---
PT SLEPT THROUGHOUT MOST OF THE NIGHT. MEPILEX AND OPSITE CLEAN, DRY, AND INTACT. CMS INTACT. IV SALINE LOCKED. PT HAD X2 BM. PT DENIED PAIN AND DID NOT HAVE FACIAL EXPRESSIONS THAT INDICATED SHE WAS IN PAIN. PT IS ONLY ORIENTED TO SELF. AMANDO ARLETH, SCD'S, HEEL PROTECTORS, AND HIP ABDUCTOR IN PLACE. BED ALARM ON. PT IS A 2PA WITH FWW. POSSIBLE D/C TO [facility] TODAY.
--- NOTE | 2018-02-17 06:57 | NUR ---
PT UP TO CHAIR WITH 2PA AND FWW. TOLERATED WELL. ATTENDS CHANGED WITH BM AND VOID. PT ENCOURAGED TO DRINK FLUIDS. CHAIR ALARM ON AND CALL LIGHT IN LAP. SCD'S AND HEEL PROTECTORS IN PLACE. PT APPEARS COMFORTABLE. NO COMPLAINTS OF PAIN OR FACIAL GRIMMACING.
[2018-02-17] MEDS ORDERED: HYDROCODON-ACE1 EA10 PO (08:12)
[2018-02-17] MEDS ORDERED: ASPIRIN EC325 MG PO (08:12)
[2018-02-17] MEDS ORDERED: MIRALAX17 GM PO (08:13)
--- NOTE | 2018-02-17 08:16 | NUR ---
PATIENT UP IN CHAIR WITH BREAKFAST TRAY. LINENS CHANGED. FACED WASH AND TEETH BRUSHED. FRESH WATER PROVIDED. CALL LIGHT IN REACH. NO FURTHER NEEDS AT THIS TIME.
--- NOTE | 2018-02-17 08:32 | NUR ---
PT SITTING UP IN RECLINER. ASSISTED TO EAT BREAKFAST, ATE ALL, MEI WELL. PT DENIES PAIN THIS AM. LEFT HIP DRESING CDI. PT ORIENTED TO SELF ONLY. CHAIR ALARM ON.
--- NOTE | 2018-02-17 11:10 | NUR ---
PT WORKED WITH P.T. AND SHOWERED WITH ASSISTANCE FROM [employer]. PT SITTING UP IN RECLINER. PT REPORTING PAIN OF LEFT HIP. MEDICATED WITH 1 NORCO. CHAIR ALARM ON. CALL LIGHT WITHIN REACH.
--- NOTE | 2018-02-17 12:40 | NUR ---
PT SITTING UP IN RECLINER EATING LUNCH WITH ASSISTANCE FROM DAUGHTER. CALL LIGHT WITHIN REACH.
--- NOTE | 2018-02-17 13:10 | NUR ---
PT 3PA TO STAND WITH WALKER SHE WAS TRYING TO RESIST STANDING. ATTENDS CHANGED. DRESSING TO LEFT HIP CHANGED PER DR. BARAJAS. DRESSED WITH MEPILEX AND OPSITE. INCISON WELL APPROXIMATED. NO DRAINAGE, REDNESS, OR INFLAMMATION NOTED. PT BACK TO RECLINER. CHAIR ALARM ON.
--- NOTE | 2018-02-17 14:20 | NUR ---
PT DC'D TO [facility]. DAUGHTER TO TAKE HER, GAVE PT A PRAYER SHAWL BEFORE SHE LEFT-SHE SEEMED VERY PLEASED. EXTENDED A BLESSING
--- NOTE | 2018-02-17 14:54 | NUR ---
REPORT GIVEN TO MIKE ADAMSON [facility] IN [place].
--- NOTE | 2018-02-18 13:08 | DS ---
[facility] [address], [place] [address] Signed ADMISSION DATE: 02/11/2018 DISCHARGE DATE: 02/17/2018 ADMISSION DIAGNOSIS: Left femoral neck fracture. DISCHARGE DIAGNOSIS: Left femoral neck fracture. PROCEDURE PERFORMED DURING THIS HOSPITALIZATION: 1. Left hip bipolar hemiarthroplasty. 2. . BRIEF HISTORY: Artis is an 82-year-old female with severe dementia who suffered a ground level fall fracturing her hip. She was admitted to the hospital, cleared by the hospitalist. Long discussion with family was undertaken regarding outcomes and need for surgery. They elected to proceed. Once the consent was obtained, she was taken to operating room and underwent the above-named procedure. She tolerated this well, was taken to the recovery room and subsequently to the Orthopedic floor. She was initially placed on oral pain medication of Vicodin, which she tolerated well, but did not need much of it. She was kept on DVT prophylaxis of SCDs, TEDs and Xarelto 10 mg p.o. daily. She was seen by Physical Therapy, and was not cognitively able to assist in her rehab. She has two person max assist for transfers only. Her dementia did not allow her to understand or participating in the therapy at all. She will need discharge to assisted facility for continued maximal assist for safety reasons. She will be discharged to [facility] on the above medications. She will follow up with me in 7 to 10 days. Kelly Cohen MD BA/TARA /[id number] Copies: Electronically Signed By: KELLY COHEN MD 02/18/18 1308 PATIENT NAME: ARTIS DAIGLE DISCHARGE SUMMARY DATE OF : 37 REPORT #: [id number] PHYSICIAN: KELLY COHEN MD PCP: Richard Lackey DO REPORT IS CONFIDENTIAL AND NOT TO BE RELEASED WITHOUT AUTHORIZATION [facility] [address] [place], [place] [address] Signed ~ Electronically Signed By: KELLY COHEN MD 02/18/18 1308 PATIENT NAME: ARTIS DAIGLE DISCHARGE SUMMARY DATE OF : 37 REPORT #: [id number] PHYSICIAN: KELLY COHEN MD PCP: Richard Lackey DO REPORT IS CONFIDENTIAL AND NOT TO BE RELEASED WITHOUT AUTHORIZATION
== END 2018-02-17 14:20 | disposition home or self-care (01) | DRG 470 ==
LOC: ED 16:45 → MS 18:57
PROVIDERS: ADMIT Specialist
PROC: 0SRS0JZ Replacement of Left Hip Joint, Femoral Surface with Synthetic Substitute, Open Approach (ICD-10-PCS; principal; 2018-02-12 16:00)
DX: S72.002A Fracture of unspecified part of neck of left femur, initial encounter for closed fracture (principal); G91.9 Hydrocephalus, unspecified; W19.XXXA Unspecified fall, initial encounter; F03.90 Unspecified dementia, unspecified severity, without behavioral disturbance, psychotic disturbance, mood disturbance, and anxiety; R41.0 Disorientation, unspecified; F32.9 Major depressive disorder, single episode, unspecified; R32 Unspecified urinary incontinence
CPT/HCPCS: 36415; 51702; 64448; 71045; 72170; 73502; 76942; 80048; 80053; 81001; 85025; 85610; 87077; 87088; 92610; 94762; 96374; 97110; 97116; 97163; 97530; 99285; C1776; G8978; G8979; J0690; J1100; J1170; J2704; J2795; J7120